=== PATIENT | female | born 1935 | race Caucasian/White ===

== ENCOUNTER 2019-08-05 14:05 | Emergency (ER) | payer MEDICARE, SELFPAY ==
--- NOTE | ~2019-08-05 | CT_ITS ---
EXAMINATION: CT abdomen pelvis wo con DATE: 08/05/2019 14:59 INDICATION: Right flank pain. TECHNIQUE: Computed tomography (CT) of the abdomen and pelvis was performed without intravenous contr ast. Automated exposure control and iterative reconstruction technique were employed. The dose-length product was 852.36 mGy-cm. COMPARISON: CT abdomen and pelvis 12/04/2018 FINDINGS: The visualized portions of the lung bases demonstrate mild atelectasis. No pleural effusion . The heart size is normal. There are coronary artery calcifications. No pericardial effusion. There is a small sliding hiatal hernia. There is diffuse hepatic steatosis. There are changes of cholecyste ctomy. The spleen, pancreas, and adrenal glands are normal. There are peripelvic cysts in the kidneys measuring up to 2.9 cm on the left. There is a 2 mm stone in right kidney. There is diverticulosis o f the colon without evidence of diverticulitis. Again seen is a diverticulum of the appendix, which i s otherwise normal. There are no pathologically enlarged lymph nodes. There is no free intraperitonea l fluid. There is severe lumbar spondylosis. There are bridging endplate osteophytes at multiple leve ls in the thoracic spine, consistent with diffuse idiopathic skeletal hyperostosis (DISH). IMPRESSION: 1. 2 mm nonobstructing right kidney stone. 2. Diffuse hepatic steatosis. 3. Small sliding hiatal hernia. Reviewed, dictated and finalized at location A.
[2019-08-05 14:11] VITALS: BP 124/98; PULSE 96; RESP 18; TEMP 36.8; O2SAT 100
--- NOTE | 2019-08-05 14:34 | ED.ABDPAIN ---
HPI - Abdominal Pain General Chief Complaint: Back Pain/Injury Stated Complaint: flank pain Time Seen by Provider: 08/05/19 14:20 Source: patient and RN notes reviewed Mode of arrival: ambulatory Limitations: no limitations History of Present Illness HPI narrative: Pt is a 84 y/o female who presents to the ED with c/o rt flank pain starting several days ago. 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 Pt notes that her pain has aggravated within the past several days, and states that her pain has begun to radiate into her rt groin. She also reports urinary frequency over the past 2 days and a cough, but denies any nausea, vomiting, numbness/tingling in her genital region, dysuria, hematuria, rhinorrhea, or sore throat. Pt states that she has been taking Tylenol for her pain, and notes that the medication seems to alleviate her symptoms for a short while. She states that she has a Hx of kidney stones, and notes that she is concerned she may have a kidney stone currently. She states that she hasn't taken her water pills this morning. MD elicited complaint: flank pain Onset (ago): day(s) (several) Location: R flank Radiation: other (rt groin) Associated symptoms: other (urinary frequency; cough) Related Data Home Medications Medication Instructions Recorded Confirmed aspirin 81 mg tablet,delayed 81 mg PO DAILY 07/19/19 release calcium carbonate 600 mg calcium 600 mg PO DAILY 07/19/19 (1,500 mg) tablet calcium polycarbophil 625 mg tablet 1,250 mg PO DAILY 07/19/19 cholecalciferol (vitamin D3) 1,250 50,000 unit PO WEEKLY 07/19/19 mcg (50,000 unit) capsule citalopram 10 mg tablet 10 mg PO DAILY 07/19/19 esomeprazole magnesium 40 mg 40 mg PO DAILY 07/19/19 capsule,delayed release glimepiride 2 mg tablet 2 mg PO QAM 07/19/19 lisinopril 10 mg tablet 10 mg PO DAILY 07/19/19 multivitamin with minerals 1 tablet PO DAILY 07/19/19 potassium gluconate 595 mg (99 mg) 595 mg PO DAILY 07/19/19 tablet Allergies Allergy/AdvReac Type Severity Reaction Status Date / Time No Known Allergies Allergy Verified 07/20/19 11:16 Review of Systems Review of Systems: All systems reviewed & are unremarkable except as noted in HPI and below ENT: Denies nasal discharge and Denies sore throat Respiratory: Respiratory: Reports cough Gastrointestinal: Gastrointestinal: Denies nausea and Denies vomiting Genitourinary: Genitourinary: Denies hematuria, Denies dysuria, Reports flank pain (rt flank pain radiating into rt groin) and Reports other (urinary frequency) Neurologic: Denies numbness (genital region) and Denies tingling (genital region) [facility] Past Medical History Medical History (Updated 08/05/19 @ 15:26 by Villa Greenberg MD) Anxiety Arthritis Cataracts, bilateral Depression Diverticulitis Essential (primary) hypertension Foot fracture Gallstones Gastric ulcer GERD (gastroesophageal reflux disease) Kidney stones Low back pain Osteoporosis Pancreatitis Skin cancer Surgical History Surgical History Hx of cataract surgery Hx of cholecystectomy Hx of dilation and curettage Social History Social History Smoking status: Never smoker Second hand tobacco smoke exposure: No Alcohol intake: never Substance use: never Gender identity (if verbalized by the patient): Female Exam Narrative: Exam Narrative: GENERAL: Well-appearing, well-nourished, and in no acute distress. HEAD: Normocephalic, atraumatic. ENT: Mucous membranes moist. CHEST: Clear to auscultation. No respiratory distress. HEART: Regular rate and rhythm. Normal peripheral pulses. ABDOMEN: Soft, nontender, nondistended, no CVA tenderness. EXTREMITIES: Normal range of motion. No edema. SKIN: Warm, dry, no rash. NEURO: Alert and
[2019-08-05 14:44] LABS: Basophils Percent Auto 0.2 % (0.2-1.2); Eosinophils Percent Auto 0.7 % (0-4.4); Hematocrit 37.8 % (37.0-47.0); Hemoglobin 12.4 g/dL (12.0-15.0); Immature Granulocyte Absolute 0.02 K/mm3 (0.00-0.031); Immature Granulocyte Percent A 0.3 % (0-0.5); Lymphocytes Absolute Auto 1.64 K/mm3 (0.9-3.2); Lymphocytes Percent Auto 28.5 % (18.3-44.2); Mean Corpuscular HGB Conc 32.8 g/dl (32-36); Mean Corpuscular Hemoglobin 29.3 pg (26-34); Mean Corpuscular Volume 89.4 fl (80-100); Mean Platelet Volume 10.1 fl (7.4-10.4); Monocytes Absolute Auto 0.6 K/mm3 (0.1-0.6); Monocytes Percent Auto 11.1 % (2.6-8.5); Neutrophils Absolute Auto 3.4 K/mm3 (1.3-6.7); Neutrophils Percent Auto 59.2 % (45.5-73.1); Platelet Count Result 174 k/mm3 (150-375); Red Blood Count 4.23 M/mm3 (4.2-5.4); Red Cell Distribution Width 13.7 % (11.5-14.5); White Blood Count 5.8 K/mm3 (4.5-10.0)
[2019-08-05 14:55] LABS: Blood Urea Nitrogen 21 mg/dL (7-17); Calcium 9.6 mg/dL (8.4-10.2); Carbon Dioxide 23 mmol/L (22-30); Chloride 108 mmol/L (98-107); Estimated CRCL calculation 60 ml/min; Estimated Glomerular Filt Rate > 60; Glucose 131 mg/dL (65-105); Potassium 3.9 mmol/L (3.4-5.0); Sodium 138 mmol/L (137-145)
[2019-08-05 15:06] LABS: Add Urine Microscopic? YES; Appearance Urine Clear (Clear); Bacteria Urine 2+ /hpf; Bilirubin Urine Negative (Negative); Blood Urine Negative (Negative); Color Urine Yellow (Yellow); Glucose Urine UA Negative (Negative); Ketones Urine Negative (Negative); Leukocyte Esterase Ur 1+ LEU/UL (Negative); Mucus Urine Rare /lpf; Nitrate Urine Negative (Negative); Protein Urine Negative (Negative); RBC Urine 0-2 /hpf (0-2); Specific Grav Ur 1.023 (1.001-1.035); Squamous Epithelial Cell Urine Few /hpf (Few); Urobilinogen Urine Negative mg/dL (<2.0); WBC Urine 21-30 /hpf
[2019-08-05 15:49] VITALS: BP 118/75; PULSE 75; RESP 16; O2SAT 100
== END 2019-08-05 15:50 | disposition home or self-care (01) ==
PROVIDERS: Emergency Provider Emergency Medicine; PCP Internal Medicine
DX: N39.0 Urinary tract infection, site not specified (principal); F41.9 Anxiety disorder, unspecified; M19.90 Unspecified osteoarthritis, unspecified site; F32.9 Major depressive disorder, single episode, unspecified; I10 Essential (primary) hypertension; K21.9 Gastro-esophageal reflux disease without esophagitis; Z87.442 Personal history of urinary calculi; M81.0 Age-related osteoporosis without current pathological fracture; Z85.828 Personal history of other malignant neoplasm of skin; Z98.42 Cataract extraction status, left eye; Z98.41 Cataract extraction status, right eye; K76.0 Fatty (change of) liver, not elsewhere classified; K44.9 Diaphragmatic hernia without obstruction or gangrene; N20.0 Calculus of kidney
CPT/HCPCS: 36415; 74176; 80048; 81001; 85025; 87077; 87086; 87088; 87186; 99284

== ENCOUNTER 2019-09-21 19:49 | Emergency (ER) | payer MEDICARE, SELFPAY ==
--- NOTE | ~2019-09-21 | XR_ITS ---
EXAMINATION: XR abdomen/kub 1V EXAM DATE: 09/21/2019 21:33 INDICATION: Right flank pain. History kidney stones. Fall. TECHNIQUE: Frontal projection(s) of the abdomen for interpretation. Comparison is made to prior exami nation from 10/04/2014. FINDINGS: Interval cholecystectomy. There is expected amount of colonic stool and gas. No small vashti wel dilation, nonobstructive bowel gas pattern. Can't identify the punctate right nephrolithiasis se en on CT. There is no organomegaly suspected. Patient has diffuse idiopathic skeletal hyperostosis (DISH). IMPRESSION: Unremarkable abdomen x-ray exam. Reviewed, dictated and finalized at location A.
--- NOTE | ~2019-09-21 | CT_ITS ---
EXAMINATION: CT abdomen pelvis wo con EXAM DATE: 09/21/2019 21:10 INDICATION: Right-sided flank pain, fall. TECHNIQUE: Spiral CT of the abdomen and pelvis was performed without contrast. Axial, coronal and s agittal images were reviewed. The dose-length product (DLP) for this examination was 1437.50 mGy-cm. The exposure was tailored according to patient size (auto mA exposure control), and iterative recon struction (ASIR) was used as additional dose reduction technique. Comparison is made to prior examina tion from 08/05/2019. FINDINGS: No solid organ injury. The liver, spleen, adrenal glands and pancreas are unremarkable. T here are cholecystectomy clips. There is 2 mm right inferior calyceal stone. Probable renal peripelv ic cysts. No hydroureter or obstructing stones The uterus is unremarkable. The bladder is unremark able. There is no retroperitoneal or pelvic lymphadenopathy. There is moderate scattered arteriosc lerotic disease. The appendix is normal. There is small sliding gastroesophageal hiatal hernia. There is sigmoid pred ominant colonic diverticulosis. There is no adjacent inflammatory change to suggest diverticulitis. Small umbilical fat-containing hernia. There is expected amount of colonic stool. No free intrape ritoneal gas. There is 5 mm pleural-based left lower lobe nodule unchanged, but decreased in size c ompared to 2019. This is a granuloma. There are no acute fractures identified. There is chronic mild to moderate compression fracture of L4. IMPRESSION: 1. No acute intra-abdominal findings. 2. Punctate nonobstructing right nephrolithiasis. 3. Colonic diverticulosis. Reviewed, dictated and finalized at location A.
--- NOTE | ~2019-09-21 | XR_ITS ---
EXAMINATION: XR shoulder RT min 2V EXAM DATE: 09/21/2019 21:34 INDICATION: No known recent injury provided at this time. Pain of the right shoulder. TECHNIQUE: The following right shoulder projections obtained: frontal projection with internal rotati on, frontal projection with external rotation, Grashey, and scapular Y view (4+ views). There is no prior study for comparison. FINDINGS: There is small acute closed posttraumatic fracture along the inferior margin of the glenoid . This finding has been indicated, marked on the examination for review, clinical correlation. The humeral head appears intact. 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 IMPRESSION: 1. Small acute right glenoid rim fracture inferiorly. 2. Moderate osteoarthritis. Reviewed, dictated and finalized at location A.
--- NOTE | ~2019-09-21 | XR_ITS ---
EXAMINATION: [id number]_[id number] EXAM DATE: 09/21/2019 21:34 INDICATION: Fall, right rib pain. TECHNIQUE: Frontal projection of the upper right ribs, frontal projection of the lower right ribs, ob lique projection of the right ribs, frontal chest x-ray(s) for interpretation. Correlation is made to chest x-ray 09/17/2016. FINDINGS: There is small acute closed posttraumatic fracture suspected along the inferior margin of t he right glenoid. Please see the right shoulder report same date. There are no displaced acute right rib fractures identified. There is no soft tissue abnormality see n. No confluent consolidation, pneumothorax or pleural effusion suspected. There is aortic arterioscl erosis. Patient has diffuse idiopathic skeletal hyperostosis (DISH). There is moderate right should er primary osteoarthritis. Consider educating patient that even if there is a radiographically occult nondisplaced rib fracture, there is no specific treatment other than to refrain from activity that prevents healing. IMPRESSION: 1. No displaced right rib fractures. 2. Probable right glenoid rim fracture. Reviewed, dictated and finalized at location A.
--- NOTE | ~2019-09-21 | CT_ITS ---
EXAMINATION: CT brain wo con, CT cervical spine wo con EXAM DATE: 09/21/2019 21:10 INDICATION: Head injury, neck pain. TECHNIQUE: Spiral CT of the head was performed without contrast. Axial, coronal and sagittal images were reviewed. Spiral CT of the cervical spine was performed without contrast. Axial images were rev iewed. Coronal and sagittal reformatted images were also reviewed. The dose-length product (DLP) fo r this examination was 605.33 (accession [id number]), 438.04 (accession [id number]) mGy-cm. The exposure was tailored according to patient size, and iterative reconstruction (ASIR) was used as additional dose reduction technique. Comparison is made to prior examination from 09/27/14. FINDINGS: HEAD CT: There is no acute intraparenchymal hemorrhage. No evidence of intraparenchymal brain mass l esion. No evidence of acute infarction. There is mild periventricular and subcortical hypodensity, n onspecific but probably related to small vessel ischemic disease. There is mild prominence of the s ulci and ventricles related to cerebral atrophy. There is intracranial carotid arteriosclerosis. There is no mass effect or midline shift. There is no obstructive hydrocephalus suspected. There are no extra-axial collections. There are no acute calvarial fractures. Patient has had bilateral ocul ar lens surgery. Soft tissue is unremarkable. The visualized sinuses and mastoid air cells are well aerated. CERVICAL CT: There is no evidence of acute cervical fracture. The odontoid process is intact. Pre-d ens space is normal. Prevertebral soft tissue is normal. There are no soft tissue abnormalities navid ntified. There is no disc space widening or traumatic vertebral body subluxation suspected. There i s moderate cervical spondylosis. A detailed level by level evaluation of spondylosis can be added as addendum if requested. IMPRESSION: 1. No acute intracranial or cervical findings. 2. Chronic age-related intracranial findings. 3. Cervical spondylosis. Reviewed, dictated and finalized at location A. IMPRESSION: 1. No acute intracranial or cervical findings. 2. Chronic age-related intracranial findings. 3. Cervical spondylosis.
[2019-09-21 19:51] VITALS: BP 162/66; PULSE 90; RESP 18; TEMP 36.3; O2SAT 99
--- NOTE | 2019-09-21 20:56 | PC.NURSE ---
pt in ct/xray
--- NOTE | 2019-09-21 20:59 | ED.FALL ---
HPI - Fall General Chief Complaint: Fall Stated Complaint: FALL Time Seen by Provider: 09/21/19 20:20 Source: patient Mode of arrival: ambulatory Limitations: no limitations History of Present Illness HPI Narrative: This patient is an 84 year old female who presents from home for an evaluation of right shoulder pain, right rib pain s/p fall. Patient states around 3 pm today she slipped on some water and she fell. She thinks she may have hit her head because she broke her glasses. She denies LOC or headache. She has pain to her right shoulder and right ribs. Her rib pain is worse with breathing. She denies nausea, vomiting or shortness of breath. She has been ambulating with out any difficulty or pain to her lower extremities. Patient also states she has history of kidney stones and she has been having intermittent right flank pain prior to her fall. She is concerned she may be having another kidney stone. complaint: fall Onset (ago): hour(s) (5) Related Data Home Medications Medication Instructions Recorded Confirmed aspirin 81 mg tablet,delayed 81 mg PO DAILY 07/19/19 release calcium carbonate 600 mg calcium 600 mg PO DAILY 07/19/19 (1,500 mg) tablet calcium polycarbophil 625 mg tablet 1,250 mg PO DAILY 07/19/19 cholecalciferol (vitamin D3) 1,250 50,000 unit PO WEEKLY 07/19/19 mcg (50,000 unit) capsule lisinopril 10 mg tablet 10 mg PO DAILY 07/19/19 multivitamin with minerals 1 tablet PO DAILY 07/19/19 potassium gluconate 595 mg (99 mg) 595 mg PO DAILY 07/19/19 tablet Allergies Allergy/AdvReac Type Severity Reaction Status Date / Time No Known Allergies Allergy Verified 09/21/19 19:54 Review of Systems Review of Systems: All systems reviewed & are unremarkable except as noted in HPI and below Constitutional: Constitutional: Denies chills and Denies fever(s) Eyes: Eyes: Reports no additional eye complaints Respiratory: Respiratory: Denies dyspnea Gastrointestinal: Gastrointestinal: Denies abdominal pain Genitourinary: Genitourinary: Reports flank pain Musculoskeletal: Musculoskeletal: Reports back pain PMFSH Past Medical History Medical History Anxiety Arthritis Cataracts, bilateral Depression Diverticulitis Essential (primary) hypertension Foot fracture Gallstones Gastric ulcer GERD (gastroesophageal reflux disease) Kidney stones Low back pain Osteoporosis Pancreatitis Skin cancer Surgical History Surgical History Hx of cataract surgery Hx of cholecystectomy Hx of dilation and curettage Social History Social History Smoking status: Never smoker Second hand tobacco smoke exposure: No Alcohol intake: never Substance use: never Gender identity (if verbalized by the patient): Female Exam Narrative: Exam Narrative: GENERAL: Well-appearing, well-nourished, and in no acute distress. HEAD: Normocephalic, atraumatic EYES: PERRLA and EOMI, conjunctiva clear without discharge , abrasion to right temporal EARS: TM's clear bilaterally without erythema or dullness NOSE: Nares clear, no rhinorrhea or epistaxis THROAT:Mucous membranes moist, Oropharynx normal without erythema, exudate, peritonsillar swelling or fluctuance NECK: Supple, without lymphadenopathy or mass, there is posterior neck tenderness RESPIRATORY: No respiratory distress, Airway patent, Respirations non-labored, Clear to auscultation without rales, rhonchi or wheeze, right anterior rib tenderness HEART: Regular rate and rhythm. No murmur heard. Normal peripheral pulses. ABDOMEN: Soft, nontender, nondistended, normal active bowel sounds. No masses. No rebound or guarding, No organomegaly. EXTREMITIES: No edema, normal strength with full range of motion. right shoulder with pain with palpation, possible mild swelling to shoulder SKIN:
--- NOTE | 2019-09-21 21:19 | PC.NURSE ---
pt still in ct/xray
[2019-09-21 21:48] LABS: Basophils Percent Auto 0.1 % (0.2-1.2); Eosinophils Percent Auto 0.4 % (0-4.4); Hematocrit 38.9 % (37.0-47.0); Hemoglobin 12.4 g/dL (12.0-15.0); Immature Granulocyte Absolute 0.02 K/mm3 (0.00-0.031); Immature Granulocyte Percent A 0.2 % (0-0.5); Lymphocytes Absolute Auto 1.79 K/mm3 (0.9-3.2); Lymphocytes Percent Auto 21.9 % (18.3-44.2); Mean Corpuscular HGB Conc 31.9 g/dl (32-36); Mean Corpuscular Volume 90.9 fl (80-100); Mean Platelet Volume 10.5 fl (7.4-10.4); Monocytes Absolute Auto 0.7 K/mm3 (0.1-0.6); Monocytes Percent Auto 8.7 % (2.6-8.5); Neutrophils Absolute Auto 5.6 K/mm3 (1.3-6.7); Neutrophils Percent Auto 68.7 % (45.5-73.1); Platelet Count Result 170 k/mm3 (150-375); Red Blood Count 4.28 M/mm3 (4.2-5.4); White Blood Count 8.2 K/mm3 (4.5-10.0)
[2019-09-21 22:02] LABS: Alanine Aminotransferase 30 U/L (4-35); Albumin Level 4.4 g/dL (3.5-5.1); Alkaline Phosphatase 98 U/L (38-126); Aspartate Amino Transferase 35 U/L (14-36); Bilirubin,Total 0.4 mg/dL (0.2-1.3); Blood Urea Nitrogen 17 mg/dL (7-17); Calcium 9.4 mg/dL (8.4-10.2); Carbon Dioxide 28 mmol/L (22-30); Chloride 103 mmol/L (98-107); Estimated CRCL calculation 67 ml/min; Estimated Glomerular Filt Rate > 60; Glucose 136 mg/dL (65-105); Sodium 136 mmol/L (137-145)
[2019-09-21 22:11] VITALS: BP 152/88; PULSE 88; RESP 16; O2SAT 99
[2019-09-21 22:11] LABS: Add Urine Microscopic? YES; Appearance Urine Clear (Clear); Bacteria Urine Trace /hpf; Bilirubin Urine Negative (Negative); Blood Urine Negative (Negative); Color Urine Yellow (Yellow); Glucose Urine UA Negative (Negative); Ketones Urine Negative (Negative); Leukocyte Esterase Ur Trace LEU/UL (Negative); Mucus Urine Rare /lpf; Nitrate Urine Negative (Negative); Protein Urine Negative (Negative); RBC Urine 0-2 /hpf (0-2); Specific Grav Ur 1.019 (1.001-1.035); Squamous Epithelial Cell Urine Rare /hpf (Few); Urobilinogen Urine Negative mg/dL (<2.0)
[2019-09-21 23:25] VITALS: BP 159/89; PULSE 75; RESP 16; O2SAT 99
[2019-09-21 23:43] VITALS: BP 161/74; PULSE 78; RESP 18; O2SAT 100
== END 2019-09-21 23:44 | disposition home or self-care (01) ==
PROVIDERS: Emergency Provider General Practice; PCP Internal Medicine
DX: M19.90 Unspecified osteoarthritis, unspecified site (principal); I10 Essential (primary) hypertension; K21.9 Gastro-esophageal reflux disease without esophagitis; M81.0 Age-related osteoporosis without current pathological fracture; Z85.828 Personal history of other malignant neoplasm of skin; Z87.442 Personal history of urinary calculi; Z98.42 Cataract extraction status, left eye; Z98.41 Cataract extraction status, right eye; Z79.82 Long term (current) use of aspirin
CPT/HCPCS: 36415; 70450; 71101; 72125; 73030; 74018; 74176; 80053; 81001; 85025; 96374; 99284; J0131

== ENCOUNTER 2019-10-07 07:42 | Outpatient (CLI) | payer MEDICARE, SELFPAY ==
--- NOTE | ~2019-10-07 | MR_ITS ---
EXAMINATION: MR shoulder RT wo con DATE: 10/07/2019 08:55 INDICATION: Right shoulder pain. TECHNIQUE: Magnetic resonance imaging (MRI) of the right shoulder was performed without intravenous c ontrast. Sequences included axial PD-weighted FS FSE, coronal oblique PD-weighted FS FSE and T2-weigh david FS FSE, and sagittal oblique T2-weighted FS FSE and T1-weighted FSE. COMPARISON: Right shoulder radiographs 09/21/2019 FINDINGS: Coracoacromial arch: The acromion undersurface is flat in morphology (type I). There is severe acromial clavicular joint o steoarthritis including a fairly directed osteophytes. There is severe subacromial/subdeltoid bursiti s. Rotator cuff: There is severe supraspinatus tendinopathy and moderate infraspinatus tendinopathy. There is a full-t hickness tear of supraspinatus tendon measuring 14 mm anterior to posterior by 18 mm proximal to dist al. Teres minor tendon is normal. There is severe subscapularis tendinopathy with partial tear superi gustavo. There is mild fatty atrophy of supraspinatus muscle belly. Biceps tendon and glenoid labrum: Biceps tendon is in bicipital groove. There is moderate intra-articular biceps tendinopathy. There is widespread tearing of the glenoid labrum. Fluid: There is a moderate-sized glenohumeral joint effusion with synovitis. Bones/cartilage: There is deep partial thickness cartilage loss of humeral head superiorly and medially. There is an i mpaction fracture deformity of superior posterolateral aspect of humeral head with bone marrow edema (Hill-Sachs fracture deformity). There is a displaced fracture of the anteroinferior glenoid with bon e marrow edema (Bankart fracture). There is deep partial thickness cartilage loss of the central and inferior glenoid. IMPRESSION: 1. Subacute Hill-Sachs fracture and Bankart fracture. 2. Severe rotator cuff tendinopathy with full-thickness tear of supraspinatus tendon and partial thic kness tear of subscapularis tendon. 3. Moderate intra-articular biceps tendinopathy. 4. Severe acromioclavicular joint osteoarthritis. 5. Moderate-sized glenohumeral joint effusion and severe subacromial/subdeltoid bursitis. Reviewed, dictated and finalized at location A. IMPRESSION: 1. Subacute Hill-Sachs fracture and Bankart fracture. 2. Severe rotator cuff tendinopathy with full-thickness tear of supraspinatus t endon and partial thickness tear of subscapularis tendon. 3. Moderate intra-articular biceps tendinopathy. 4. Severe acromioclavicular joint osteoarthritis. 5. Moderate-sized glenohumeral joint effusion and severe subacromial/subdeltoid bursitis.
== END 2019-10-07 07:43 | disposition home or self-care (01) ==
PROVIDERS: PCP Internal Medicine; Visit Provider Orthopaedic Surgery
DX: S42.144A Nondisplaced fracture of glenoid cavity of scapula, right shoulder, initial encounter for closed fracture (principal); X58.XXXA Exposure to other specified factors, initial encounter; M19.011 Primary osteoarthritis, right shoulder; M75.51 Bursitis of right shoulder
CPT/HCPCS: 73221

== ENCOUNTER 2019-12-06 17:46 | Emergency (ER) | payer MEDICARE, SELFPAY ==
--- NOTE | ~2019-12-06 | XR_ITS ---
[XR_[id number] ] INDICATION: Right chest pain after fall TECHNIQUE: Frontal projection of the upper right ribs, frontal projection of the lower right ribs, ob lique projection of all the right ribs, frontal inspiratory chest x-ray for interpretation. FINDINGS: There is a right seventh rib fracture. There is a possible right eighth rib fracture. There are no soft tissue abnormality seen. The lungs are clear. There are cholecystectomy clips. IMPRESSION: 1: Right seventh and possibly eighth rib fractures. Reviewed, dictated and finalized at location A.
[2019-12-06 18:20] VITALS: BP 140/67; PULSE 86; RESP 16; TEMP 36.1; O2SAT 96
--- NOTE | 2019-12-06 20:33 | ED.FALL ---
HPI - Fall General Chief Complaint: Fall Stated Complaint: fall, rib pain Time Seen by Provider: 12/06/19 20:21 History of Present Illness HPI Narrative: Fell and struck her chest earlier today. She has pain in the ribs in the right chest. The pain is constatn with paroxysms. No SOB, cough. She did not strike her head or sustain any other injury. Related Data Home Medications Medication Instructions Recorded Confirmed aspirin 81 mg tablet,delayed 81 mg PO DAILY 07/19/19 release calcium carbonate 600 mg calcium 600 mg PO DAILY 07/19/19 (1,500 mg) tablet calcium polycarbophil 625 mg tablet 1,250 mg PO DAILY 07/19/19 cholecalciferol (vitamin D3) 1,250 50,000 unit PO WEEKLY 07/19/19 mcg (50,000 unit) capsule multivitamin with minerals 1 tablet PO DAILY 07/19/19 potassium gluconate 595 mg (99 mg) 595 mg PO DAILY 07/19/19 tablet Allergies Allergy/AdvReac Type Severity Reaction Status Date / Time No Known Allergies Allergy Verified 09/21/19 19:54 Review of Systems Review of Systems: All systems reviewed & are unremarkable except as noted in HPI and below PMFSH Past Medical History Medical History Anxiety Arthritis Cataracts, bilateral Depression Diverticulitis Essential (primary) hypertension Foot fracture Gallstones Gastric ulcer GERD (gastroesophageal reflux disease) Kidney stones Low back pain Osteoporosis Pancreatitis Skin cancer Surgical History Surgical History Hx of cataract surgery Hx of cholecystectomy Hx of dilation and curettage Family History Family History Father Patient's father is No family history of cerebrovascular accident (CVA) Mother Patient's mother is Other Cerebrovascular accident Diabetes mellitus Family history of heart disease in male family member before age 55 Hypertension Social History Social History Smoking status: Never smoker Second hand tobacco smoke exposure: No Alcohol intake: never Substance use: never Gender identity (if verbalized by the patient): Female Exam Const: General: healthy appearing, no acute distress and alert Orientation/consciousness: patient oriented x3 HENMT: Head: normal to inspection Chest: Chest palpation & inspection: tenderness rib (right anterior) Resp: Effort & Inspection: normal respiratory effort Auscultation: clear to auscultation bilaterally Cardio: Rate: regular rate Rhythm: regular rhythm Skin: General skin exam: normal color Neuro: General: patient oriented x3 and moves all extremities Speech: normal speech Course Vital Signs Vital signs: Vital Signs Temperature 36.1 C L 12/06/19 18:20 Pulse Rate 86 12/06/19 18:20 Respiratory Rate 16 12/06/19 18:20 Blood Pressure 140/67 12/06/19 18:20 Pulse Oximetry 96 12/06/19 18:20 Temperature 36.1 C L 12/06/19 18:20 Pulse Rate 80 12/06/19 22:58 Respiratory Rate 16 12/06/19 22:58 Blood Pressure 127/74 12/06/19 22:58 Pulse Oximetry 95 12/06/19 22:58 MDM - Fall Medical Records Attestation: I reviewed the patient's medical records. Discharge Plan Discharge Clinical Impression: Fracture of rib Patient Disposition: Home, Self-Care Condition: Stable Instructions: Rib Fracture (ED) Prescriptions: New hydrocodone-acetaminophen [[place]] 5-325 mg tablet 1 tablet PO Q4H PRN (Reason: pain) Qty: 15 RF: 0 No Action aspirin [Adult Low Dose Aspirin] 81 mg tablet,delayed release (DR/EC) 81 mg PO DAILY RF: 0 calcium carbonate [Calcium 600] 600 mg calcium (1,500 mg) tablet 600 mg PO DAILY RF: 0 cholecalciferol (vitamin D3) 1,250 mcg (50,000 unit) capsule 50,000 unit PO WEEKLY RF: 0 calcium polycarbophil [Fiber Therapy
--- NOTE | 2019-12-06 20:36 | PC.NURSE ---
Pt staes she slipped off the porch due to the rain and fell on her right side falling ontop of a lamdscapping rock. Pt states when she breathes it hurts the right side of her back. Pt denies ever hitting her head. Pt is sitting holding both sides of her upper abd stating, only under her right breast has pain.
[2019-12-06] MEDS: KETOROLAC (*BKC) 60 MG/2 ML VIAL IM (20:46)
[2019-12-06 20:48] VITALS: BP 133/62; PULSE 88; RESP 20; O2SAT 95
[2019-12-06 22:58] VITALS: BP 127/74; PULSE 80; RESP 16; O2SAT 95
== END 2019-12-06 22:40 | disposition home or self-care (01) ==
PROVIDERS: Emergency Provider Emergency Medicine; PCP Internal Medicine
DX: S22.31XA Fracture of one rib, right side, initial encounter for closed fracture (principal); M19.90 Unspecified osteoarthritis, unspecified site; I10 Essential (primary) hypertension; K21.9 Gastro-esophageal reflux disease without esophagitis; Z87.442 Personal history of urinary calculi; M81.0 Age-related osteoporosis without current pathological fracture; Z85.828 Personal history of other malignant neoplasm of skin; Z98.42 Cataract extraction status, left eye; Z98.41 Cataract extraction status, right eye; W01.10XA Fall on same level from slipping, tripping and stumbling with subsequent striking against unspecified object, initial encounter
CPT/HCPCS: 71101; 96372; 99284; A9270; J1885; J3360

== ENCOUNTER 2020-02-22 00:15 | Outpatient (CLI) | payer MEDICARE, SELFPAY ==
[2020-02-22 19:01] LABS: SARS-CoV-2 RNA PCR Negative
== END 2020-02-22 00:16 | disposition home or self-care (01) ==
LOC: ANHCOVIDDT 00:15
PROVIDERS: PCP Internal Medicine; Visit Provider Internal Medicine Gastroenterology
DX: Z01.812 Encounter for preprocedural laboratory examination (principal); Z20.828 Contact with and (suspected) exposure to other viral communicable diseases
CPT/HCPCS: 87635; C9803; U0003

== ENCOUNTER 2020-02-24 00:03 | Day surgery (SDC) | payer MEDICARE, SELFPAY ==
[2020-02-17 10:08] VITALS: BMI 38.4
[2020-02-24] MEDS: LACTATED RINGERS 1,000 ML 150 ML IV CONT (08:30)
[2020-02-24 08:31] LABS: Glucose Point of Care 168 (65-105)
[2020-02-24 08:34] VITALS: BP 175/78; PULSE 95; RESP 20; TEMP 36.6; O2SAT 95; BMI 40.1
--- NOTE | 2020-02-24 08:37 | PM.IMHP ---
H&P: HPI History of Present Illness Date/Time: 02/24/20 08:37 Chief complaint: GERD Narrative: Reason for visit EGD. This very pleasant lady was seen in consultation at the request of the primary physician. Impression: We have a very pleasant lady with history of GERD. She is well controlled on medication. She also has a history of adenomatous duodenal polyp. She is here for screening and surveillance. HTN. Obesity. DM. Anxiety/depression. Gallstone pancreatitis. Osteoporosis. Diverticulosis coli. Chronic low back pain. Skin cancer. Kidney stones. Recommendation: EGD. Patient has a colonoscopy scheduled. History: This very pleasant lady has a GI history of gallstone pancreatitis, GERD and adenomatous duodenal polyps. She is here for screening and surveillance of duodenal polyps. Her GERD is well controlled on medication. Physical examination: General: very pleasant patient in no acute distress. HEENT: Head was normocephalic sclerae is clear mouth without masses neck was supple. Heart: Rate rhythm regular without S3 or S4. Lungs: CTA. Abdomen: Soft with no guarding or rigidity. Bowel sounds were active. Neurologic: Cranial nerves 2 through 12 intact. No focal defects. No clonus. Musculoskeletal system: Revealed no joint tenderness or swelling no muscle atrophy. Extremities: Reveal no significant edema. Skin: Warm and dry with normal turgor. Mental status: intact. Patient is alert and oriented. Review of Systems Review of Systems: All systems reviewed & are unremarkable except as noted in HPI and below PMFSH Past Medical History Medical History (Updated 01/25/20 @ 13:02 by Won Manzo DO) Anxiety Arthritis Cataracts, bilateral Depression Diverticulitis Essential (primary) hypertension Foot fracture Gallstones Gastric ulcer GERD (gastroesophageal reflux disease) Kidney stones Low back pain Osteoporosis Pancreatitis Skin cancer Surgical History Surgical History Hx of cataract surgery Hx of cholecystectomy Hx of dilation and curettage Family History Family History Father Patient's father is No family history of cerebrovascular accident (CVA) Mother Patient's mother is Other Cerebrovascular accident Diabetes mellitus Family history of heart disease in male family member before age 55 Hypertension Social History Social History Smoking status: Never smoker Second hand tobacco smoke exposure: No Alcohol intake: never Substance use: never Substance use type: does not use Living arrangements: alone Gender identity (if verbalized by the patient): Female Sexual Orientation (if Verbalized by the Patient): Straight or Heterosexual Spiritual care concerns: No Meds Home Medications and Allergies Home Medications Medication Instructions Recorded Confirmed Type aspirin 81 mg tablet,delayed 81 mg PO DAILY 07/19/19 02/17/20 History release calcium carbonate 600 mg calcium 600 mg PO DAILY 07/19/19 02/17/20 History (1,500 mg) tablet calcium polycarbophil 625 mg tablet 1,250 mg PO DAILY 07/19/19 02/17/20 History multivitamin with minerals 1 tablet PO DAILY 07/19/19 02/17/20 History potassium gluconate 595 mg (99 mg) 595 mg PO DAILY 07/19/19 02/17/20 History tablet hydrochlorothiazide 25 mg tablet 25 mg PO 2XW PRN #30 tablet 07/20/19 02/17/20 Rx citalopram 10 mg tablet 10 mg PO DAILY #90 tablet 09/16/19 02/17/20 Rx esomeprazole magnesium 40 mg 40 mg PO DAILY #90 cap 09/16/19 02/17/20 Rx capsule,delayed release tolnaftate 1 % topical powder 1 applic TOPICAL BID #45 gm 10/05/19 02/17/20 Rx diltiazem HCl 180 mg capsule,24 180 mg PO DAILY #90 cap 10/23/19 02/17/20 Rx hr,extended release lisinopril 10 mg tabl
--- NOTE | 2020-02-24 08:48 | WPDANESEPPF ---
Anes - Initial Pre Proc Eval Procedure: Operation Date: 02/24/20 09:00 Proposed Procedures p Esophagogastroduodenoscopy - Stone Payan DO Date/Time: 02/24/20 08:48 Surgeon: Stone Payan DO Pre Op Diagnosis: GERD Patient Data Age: 84 Gender: F Height: 5 ft 6 in Weight: 112.7 kg Last Vital Signs Temp 36.6 C 02/24/20 08:34 Pulse 95 02/24/20 08:34 Resp 20 02/24/20 08:34 BP 175/78 H 02/24/20 08:34 Pulse Ox 95 02/24/20 08:34 Allergies Allergy/AdvReac Type Severity Reaction Status Date / Time No Known Allergies Allergy Verified 02/24/20 08:15 Home Medications Medication Instructions Recorded Confirmed Type aspirin 81 mg tablet,delayed 81 mg PO DAILY 07/19/19 02/17/20 History release calcium carbonate 600 mg calcium 600 mg PO DAILY 07/19/19 02/17/20 History (1,500 mg) tablet calcium polycarbophil 625 mg tablet 1,250 mg PO DAILY 07/19/19 02/17/20 History multivitamin with minerals 1 tablet PO DAILY 07/19/19 02/17/20 History potassium gluconate 595 mg (99 mg) 595 mg PO DAILY 07/19/19 02/17/20 History tablet hydrochlorothiazide 25 mg tablet 25 mg PO 2XW PRN #30 tablet 07/20/19 02/17/20 Rx citalopram 10 mg tablet 10 mg PO DAILY #90 tablet 09/16/19 02/17/20 Rx esomeprazole magnesium 40 mg 40 mg PO DAILY #90 cap 09/16/19 02/17/20 Rx capsule,delayed release tolnaftate 1 % topical powder 1 applic TOPICAL BID #45 gm 10/05/19 02/17/20 Rx diltiazem HCl 180 mg capsule,24 180 mg PO DAILY #90 cap 10/23/19 02/17/20 Rx hr,extended release lisinopril 10 mg tablet 10 mg PO DAILY #90 tablet 12/02/19 02/17/20 Rx cholecalciferol (vitamin D3) 1,250 50,000 unit PO WEEKLY #13 cap 01/25/20 02/17/20 Rx mcg (50,000 unit) capsule glimepiride 4 mg tablet 4 mg PO DAILY #90 tablet 01/25/20 02/17/20 Rx Laboratory Tests 02/24/20 08:28 POC Capillary Glucose 168 mg/dl H mg/dl (65-105) Patient hx anesthesia problems: none Family hx anesthesia problems: none PMFSH Past Medical History Medical History Anxiety Arthritis Cataracts, bilateral Depression Diverticulitis Essential (primary) hypertension Foot fracture Gallstones Gastric ulcer GERD (gastroesophageal reflux disease) Kidney stones Low back pain Osteoporosis Pancreatitis Skin cancer Surgical History Surgical History Hx of cataract surgery Hx of cholecystectomy Hx of dilation and curettage Family History Family History Father Patient's father is No family history of cerebrovascular accident (CVA) Mother Patient's mother is Other Cerebrovascular accident Diabetes mellitus Family history of heart disease in male family member before age 55 Hypertension Social History Social History Smoking status: Never smoker Second hand tobacco smoke exposure: No Alcohol intake: never Substance use: never Substance use type: does not use Living arrangements: alone Gender identity (if verbalized by the patient): Female Sexual Orientation (if Verbalized by the Patient): Straight or Heterosexual Spiritual care concerns: No Anes - Eval Final PreProcedure Day of Procedure 02/24/20 08:48 Patient weight: morbidly obese Heart: regular rate and rhythm Lungs: clear to auscultation Airway: Mallampati scale class II Neurological: alert and oriented Last oral intake: >/= 8 hours ASA classification: III Emergent: no Anesthetic plan: proceed Anesthesia type and monitoring: general GIVS and standard monitoring Informed Consent: The patient's anesthetic plan and its attendant risks and benefits were discussed with the patient/family/POA. Questions were solicited and answers provided to the satisfaction of the patient/family/POA.
[2020-02-24 09:49] VITALS: BP 150/77; PULSE 76; RESP 12; O2SAT 97
[2020-02-24 09:59] VITALS: BP 164/82; PULSE 77; RESP 12; O2SAT 99
[2020-02-24 10:09] VITALS: BP 172/86; PULSE 80; RESP 21; O2SAT 98
== END 2020-02-24 10:30 | disposition home or self-care (01) ==
PROVIDERS: PCP Internal Medicine; Visit Provider Internal Medicine Gastroenterology
PROC: 0DJ08ZZ Inspection of Upper Intestinal Tract, Via Natural or Artificial Opening Endoscopic (ICD-10-PCS; CPT 43235; principal; 2020-02-24 09:00)
DX: K21.9 Gastro-esophageal reflux disease without esophagitis (principal); K57.10 Diverticulosis of small intestine without perforation or abscess without bleeding; K29.70 Gastritis, unspecified, without bleeding; I10 Essential (primary) hypertension; F41.8 Other specified anxiety disorders; M81.0 Age-related osteoporosis without current pathological fracture; Z79.82 Long term (current) use of aspirin; Z87.11 Personal history of peptic ulcer disease; E66.01 Morbid (severe) obesity due to excess calories; Z68.41 Body mass index [BMI] 40.0-44.9, adult
CPT/HCPCS: 43239; 87081; 88305; 88342; J2704; J7120

== ENCOUNTER 2020-03-07 01:08 | Outpatient (CLI) | payer MEDICARE, SELFPAY ==
[2020-03-07 19:05] LABS: SARS-CoV-2 RNA PCR Negative
== END 2020-03-07 01:09 | disposition home or self-care (01) ==
LOC: ANHCOVIDDT 01:08
PROVIDERS: PCP Internal Medicine; Visit Provider Internal Medicine Gastroenterology
DX: Z01.812 Encounter for preprocedural laboratory examination (principal); Z20.828 Contact with and (suspected) exposure to other viral communicable diseases
CPT/HCPCS: 87635; C9803; U0003

== ENCOUNTER 2020-03-09 00:33 | Day surgery (SDC) | payer MEDICARE, SELFPAY ==
[2020-03-02 09:26] VITALS: BMI 38.7
--- NOTE | 2020-03-08 08:56 | WPDANESEPPF ---
Anes - Initial Pre Proc Eval Procedure: Operation Date: 03/09/20 07:30 Proposed Procedures p Colonoscopy - Stone Payan DO Date/Time: 03/08/20 08:56 Surgeon: Stone Payan DO Pre Op Diagnosis: polyp of colon Patient Data Age: 84 Gender: F Height: 1.68 m Weight: 109 kg Allergies Allergy/AdvReac Type Severity Reaction Status Date / Time No Known Allergies Allergy Verified 03/09/20 06:28 Home Medications Medication Instructions Recorded Confirmed Type aspirin 81 mg tablet,delayed 81 mg PO DAILY 07/19/19 03/02/20 History release calcium carbonate 600 mg calcium 600 mg PO DAILY 07/19/19 03/02/20 History (1,500 mg) tablet calcium polycarbophil 625 mg tablet 1,250 mg PO DAILY 07/19/19 03/02/20 History multivitamin with minerals 1 tablet PO DAILY 07/19/19 03/02/20 History potassium gluconate 595 mg (99 mg) 595 mg PO DAILY 07/19/19 03/02/20 History tablet hydrochlorothiazide 25 mg tablet 25 mg PO 2XW PRN #30 tablet 07/20/19 03/02/20 Rx citalopram 10 mg tablet 10 mg PO DAILY #90 tablet 09/16/19 03/02/20 Rx esomeprazole magnesium 40 mg 40 mg PO DAILY #90 cap 09/16/19 03/02/20 Rx capsule,delayed release tolnaftate 1 % topical powder 1 applic TOPICAL BID #45 gm 10/05/19 03/02/20 Rx diltiazem HCl 180 mg capsule,24 180 mg PO DAILY #90 cap 10/23/19 03/02/20 Rx hr,extended release lisinopril 10 mg tablet 10 mg PO DAILY #90 tablet 12/02/19 03/02/20 Rx cholecalciferol (vitamin D3) 1,250 50,000 unit PO WEEKLY #13 cap 01/25/20 03/02/20 Rx mcg (50,000 unit) capsule glimepiride 4 mg tablet 4 mg PO DAILY #90 tablet 01/25/20 03/02/20 Rx Patient hx anesthesia problems: none Family hx anesthesia problems: none PMFSH Past Medical History Medical History Anxiety Arthritis Cataracts, bilateral Depression Diverticulitis Essential (primary) hypertension Foot fracture Gallstones Gastric ulcer GERD (gastroesophageal reflux disease) Kidney stones Low back pain Osteoporosis Pancreatitis Skin cancer Surgical History Surgical History Hx of cataract surgery Hx of cholecystectomy Hx of dilation and curettage Family History Family History Father Patient's father is No family history of cerebrovascular accident (CVA) Mother Patient's mother is Other Cerebrovascular accident Diabetes mellitus Family history of heart disease in male family member before age 55 Hypertension Social History Social History Smoking status: Never smoker Second hand tobacco smoke exposure: No Alcohol intake: never Substance use: never Substance use type: does not use Living arrangements: alone Gender identity (if verbalized by the patient): Female Sexual Orientation (if Verbalized by the Patient): Straight or Heterosexual Spiritual care concerns: No Anes - Eval Final PreProcedure Day of Procedure 03/08/20 08:56 Patient weight: obese Heart: regular rate and rhythm Lungs: clear to auscultation and normal air movement Airway: Mallampati scale class III Neurological: alert and oriented Last oral intake: >/= 8 hours ASA classification: III Emergent: no Anesthetic plan: proceed Anesthesia type and monitoring: general GIVS and standard monitoring Informed Consent: The patient's anesthetic plan and its attendant risks and benefits were discussed with the patient/family/POA. Questions were solicited and answers provided to the satisfaction of the patient/family/POA.
[2020-03-09 06:31] VITALS: BP 121/58; PULSE 96; RESP 18; TEMP 36.6; O2SAT 96
[2020-03-09 06:33] VITALS: BMI 38.9
[2020-03-09 06:49] LABS: Glucose Point of Care 201 (65-105)
[2020-03-09] MEDS: LACTATED RINGERS 1,000 ML 150 ML IV CONT (06:51)
--- NOTE | 2020-03-09 07:33 | WPDHPUPDATE1 ---
History and Physical Update Update Date/Time: 03/09/20 07:33 History and Physical has been reviewed, including an updated exam of the patient. There are NO changes in the patient's condition. Risks, benefits, and alternatives have been discussed and questions answered. Patient agrees to proceed with procedure.
[2020-03-09 08:04] VITALS: BP 105/58; PULSE 72; RESP 15; O2SAT 95
[2020-03-09 08:14] VITALS: BP 128/61; PULSE 72; RESP 16; O2SAT 94
[2020-03-09 08:24] VITALS: BP 134/70; PULSE 76; RESP 15; O2SAT 99
== END 2020-03-09 08:45 | disposition home or self-care (01) ==
PROVIDERS: PCP Internal Medicine; Visit Provider Internal Medicine Gastroenterology
PROC: 0DJD8ZZ Inspection of Lower Intestinal Tract, Via Natural or Artificial Opening Endoscopic (ICD-10-PCS; CPT 45378; principal; 2020-03-09 07:30)
DX: Z12.11 Encounter for screening for malignant neoplasm of colon (principal); D12.2 Benign neoplasm of ascending colon; K57.30 Diverticulosis of large intestine without perforation or abscess without bleeding; K64.8 Other hemorrhoids; E11.9 Type 2 diabetes mellitus without complications; M81.0 Age-related osteoporosis without current pathological fracture; I10 Essential (primary) hypertension; F41.8 Other specified anxiety disorders; H26.9 Unspecified cataract; K21.9 Gastro-esophageal reflux disease without esophagitis; Z87.11 Personal history of peptic ulcer disease; Z79.84 Long term (current) use of oral hypoglycemic drugs; E66.9 Obesity, unspecified; Z68.39 Body mass index [BMI] 39.0-39.9, adult
CPT/HCPCS: 45385; 45380; 88305; J2704; J7120

== ENCOUNTER 2021-08-27 16:54 | Observation (INO) | payer MEDICARE, SELFPAY ==
--- NOTE | ~2021-08-27 | MR_ITS ---
EXAMINATION: MR brain/brain stem wo/w con EXAM DATE: 08/28/2021 07:51 INDICATION: Stroke like symptoms, dysarthria. TECHNIQUE: Magnetic resonance imaging (MRI) of the brain/brain stem obtained without contrast. Sagit sonal T1, axial diffusion, gradient echo (T2*), T1, T2, FLAIR sequences obtained. Patient was then inj ected with 20 cc intravenous Multihance contrast. Axial and coronal postcontrast T1 weighted sequence s obtained. Correlation is made to head CT from 08/27/2021. FINDINGS: Small acute infarction in the left centrum semiovale, left frontal lobe white matter. Ther e is no acute hemorrhage seen on the T2*, a hemosiderin sensitive sequence. No intraparenchymal brai n mass lesion. There is mild to moderate periventricular and subcortical T2/FLAIR signal hyperintensi ty, nonspecific but probably related to small vessel ischemic disease (microangiopathy). There are no extra-axial collections. Flow voids are seen in the cerebral arteries on the T2-weighted sequence s consistent with their expected patency. Patient has had bilateral ocular lens surgery. Soft tissu e is unremarkable. There are no areas of abnormal enhancement on the postcontrast images. IMPRESSION: 1. Small acute left centrum semiovale infarction. 2. Chronic age related findings. Reviewed, dictated and finalized at location A.
--- NOTE | ~2021-08-27 | CT_ITS ---
EXAMINATION: CTA BRAIN/CAROTID DATE: 08/28/2021 16:56 INDICATION: Acute stroke with slurred speech and left facial droop TECHNIQUE: Computed tomographic angiography (CTA) of the head and neck was performed with 100 mL Omni paque-350 intravenous contrast. Multiplanar reconstructions and maximum intensity projection 3D-recon structions of the carotid arteries and of the intracranial arteries were created by the technologist on a separate workstation. Precontrast CT of the head was also obtained. Automated exposure control and iterative reconstruction technique were employed.The dose-length product was 1763.80 mGy-cm. COMPARISON: Brain MR dated 08/28/[address] dated 08/26/2021 FINDINGS: Carotid arteries: Atherosclerotic plaque with 0% stenosis of both the left and right carotid bulbs relative to normal d istal artery lumen diameter (NASCET criteria). Small amount of atherosclerotic plaque at the origin o f the left and right common carotid arteries as well as at the origin of the dominant left vertebral artery. The right vertebral artery is diminutive carotid course. Atherosclerotic coronary artery calc ifications. Mosaic attenuation in the visualized upper lungs likely related to expiratory phase of im aging and atelectasis with subsegmental regions of air trapping. A few mildly prominent but still nor mal-sized likely reactive mediastinal lymph nodes. Extensive benign subcentimeter right thyroid nodul e. Mild cervical spondylosis. Chronic T5 compression fracture with 20% anterior vertebral body height loss. Head: No acute intracranial hemorrhage or abnormal extra axial fluid collection. The small acute infarct in the posterior left frontal lobe centrum semiovale evident on prior brain MR is essentially indiscern ible on the CT images. There is mild scattered white matter hypoattenuation consistent with chronic s mall vessel ischemic disease. Ventricles are normal and symmetric. No mass/mass effect. Changes of b ilateral intraocular lens replacement. The orbits and mastoid air cells are normal. Mild mucoperioste al thickening in the bilateral ethmoid and maxillary sinuses. Intracranial arteries There is decreased AP diameter of the carotid canal in the right temporal bone resulting in extrinsic compression of the petrous portion of the right internal carotid artery. There is atherosclerotic pl aque without hemodynamically significant stenosis at the lateral carotid siphons. There is mild scatt ered stenosis, basilar and left vertebral arteries. The right vertebral artery is diminutive. There i s no hemodynamically significant stenosis in the vertebral, basilar and internal carotid arteries. Th ere are no aneurysms or dissection identified. The right A1 and P1 segments are patent. The left ante rior cerebral artery is supplied via the right A1 segment and a patent anterior communicating artery. The left posterior cerebral artery supplied from the left internal carotid artery via a left posteri or commuting artery. Cerebral arterial arborization appears symmetric. IMPRESSION: 1. 0% stenosis of the left and right carotid bulbs relative to normal distal artery lumen diameter (N ASCET criteria). 2. Scattered mild atherosclerotic disease in slightly intracranial cerebral arteries without hemodyna mically significant stenosis of aneurysm or dissection. Reviewed, dictated and finalized at location A. IMPRESSION: 1. 0% stenosis of the left and right carotid bulbs relative to normal distal ar sylvester lumen diameter (NASCET criteria). 2. Scattered mild atherosclerotic disease in slightly intracranial cerebral art eries without hemodynamically significant stenosis of aneurysm or dissection.
--- NOTE | ~2021-08-27 | US_ITS ---
EXAMINATION: US carotid duplex BI EXAM DATE: 08/28/2021 08:32 INDICATION: Dysarthria. Acute left centrum semiovale infarction. TECHNIQUE: Grayscale, color and pulsed Doppler images of the cervical carotid arteries were obtained . The degree of vessel stenosis is placed in one of the following categories: normal, <50% stenosis, 50-69% stenosis, >=70% stenosis but less than near-occlusion, near-occlusion, or occlusion. Note that percent stenosis relative to normal distal artery lumen diameter is indirectly measured from velocit y measurements as described by Marc, et al. Radiology 2003; 229:340-346. There is no prior study fo r comparison. FINDINGS: RIGHT SIDE: Right common carotid artery peak systolic velocity (PSV in cm/s): 106 Right bulb/internal carotid artery peak systolic velocity (PSV in cm/s): 133 Right internal carotid artery end diastolic velocity (EDV in cm/s): 16 Right ICA/CCA peak systolic ratio: 1.3 Right external carotid artery peak systolic velocity (PSV in cm/s): 142 Right vertebral artery antegrade flow: yes There is mild carotid bulb plaque. Velocity and Doppler waveforms in the common and internal carotid arteries is normal. LEFT SIDE: Left common carotid artery peak systolic velocity (PSV in cm/s): 95 Left bulb/internal carotid artery peak systolic velocity (PSV in cm/s): 77 Left internal carotid artery end diastolic velocity (EDV in cm/s): 25 Left ICA/CCA peak systolic ratio: 0.8 Left external carotid artery peak systolic velocity (PSV in cm/s): 108 Left vertebral artery antegrade flow: yes There is mild carotid bulb plaque. Velocity and Doppler waveforms in the common and internal carotid arteries is normal. IMPRESSION: 1. Less than 50 percent stenosis in the right internal carotid artery. 2. Less than 50 percent stenosis in the left internal carotid artery. > Reviewed, dictated and finalized at location A.
--- NOTE | ~2021-08-27 | XR_ITS ---
EXAMINATION: XR chest 1V Exam Date/Time: 08/27/2021 17:45 CDT CLINICAL HISTORY: slurred speech, minor facial droop, HX OF HTN Comparison: 09/17/2016.. RESULT: Lines, tubes, and devices: None. Lungs and pleura: Clear. Cardiomediastinal silhouette: Stable cardiomediastinal silhouette. Other: No acute osseous or upper abdominal finding. IMPRESSION: No acute cardiopulmonary process Reviewed, dictated and finalized at location K.
--- NOTE | ~2021-08-27 | CT_ITS ---
EXAMINATION: CT brain wo con DATE: 08/27/2021 17:51 INDICATION: slurred speech, minor facial droop, vision changes TECHNIQUE: Computed tomography (CT) of the head was performed without intravenous contrast. The mA wa s adjusted according to patient size. Iterative reconstruction technique was employed. The dose-lengt h product was 605.33 mGy-cm. COMPARISON: 09/21/2019. FINDINGS: No acute intracranial hemorrhage or extra-axial fluid collection. No hydrocephalus, mass, or herniation. No acute ischemic infarct. Unremarkable dural venous sinus attenuation. No acute osseous abnormality. The aerated spaces are clear. Mild atrophy and chronic white matter change. Intracranial atherosclerotic calcification. Bilateral l ens replacements. IMPRESSION: No acute intracranial process. Reviewed, dictated and finalized at location K.
[2021-08-27 17:07] VITALS: BP 157/87; BP 179/91; PULSE 65; PULSE 78; RESP 16; RESP 19; TEMP 36.6; O2SAT 95; O2SAT 96
[2021-08-27 17:10] LABS: Glucose Point of Care 121 mg/dl (65-105)
--- NOTE | 2021-08-27 17:29 | ECG_ITS ---
Measurements Intervals [place] Rate: 59 P: 24 NE: 155 QRS: -2 QRSD: 90 T: 35 QT: 437 QTc: 435 Interpretive Statements SINUS BRADYCARDIA WITH OCCASIONAL SUPRAVENTRICULAR PREMATURE COMPLEXES Electronically Signed On 08-28-2021 11:07:51 CDT by Juan Antonio Herndon M.D.
[2021-08-27 17:31] VITALS: BP 183/99; PULSE 61; RESP 18; O2SAT 97
[2021-08-27 17:38] LABS: Basophils Percent Auto 0.3 % (0.2-1.2); Eosinophils Absolute Auto 0.1 K/mm3 (0-0.3); Eosinophils Percent Auto 1.3 % (0-4.4); Hematocrit 38.2 % (37.0-47.0); Hemoglobin 12.2 g/dL (12.0-15.0); Immature Granulocyte Absolute 0.03 K/mm3 (0.00-0.031); Immature Granulocyte Percent A 0.5 % (0-0.5); Lymphocytes Absolute Auto 2.12 K/mm3 (0.9-3.2); Lymphocytes Percent Auto 33.3 % (18.3-44.2); Mean Corpuscular HGB Conc 31.9 g/dl (32-36); Mean Corpuscular Hemoglobin 29.7 pg (26-34); Mean Corpuscular Volume 92.9 fl (80-100); Mean Platelet Volume 10.5 fl (7.4-10.4); Monocytes Absolute Auto 0.7 K/mm3 (0.1-0.6); Monocytes Percent Auto 11.1 % (2.6-8.5); Neutrophils Absolute Auto 3.4 K/mm3 (1.3-6.7); Neutrophils Percent Auto 53.5 % (45.5-73.1); Platelet Count Result 186 k/mm3 (150-375); Red Blood Count 4.11 M/mm3 (4.2-5.4); White Blood Count 6.4 K/mm3 (4.5-10.0)
[2021-08-27 17:49] LABS: Prothrombin Time 13.1 Seconds (11.1-14.7)
[2021-08-27 17:50] LABS: Partial Thromboplastin Time 26.7 SECONDS (22.3-36.8)
[2021-08-27 18:16] LABS: Alanine Aminotransferase 19 U/L (4-35); Albumin Level 4.1 g/dL (3.5-5.1); Alkaline Phosphatase 86 U/L (38-126); Anion Gap 6 mmol/L (8-16); Aspartate Amino Transferase 25 U/L (14-36); Bilirubin,Total 0.2 mg/dL (0.2-1.3); Blood Urea Nitrogen 27 mg/dL (7-17); Calcium 9.3 mg/dL (8.4-10.2); Carbon Dioxide 29 mmol/L (22-30); Chloride 104 mmol/L (98-107); Estimated CRCL calculation 60 ml/min; Estimated Glomerular Filt Rate > 60; Glucose 110 mg/dL (65-110); Potassium 4.4 mmol/L (3.4-5.0); Sodium 139 mmol/L (137-145)
[2021-08-27 18:28] LABS: Troponin I < 0.012 ng/mL (0.000-0.034)
[2021-08-27 18:48] VITALS: BP 167/70; PULSE 73; RESP 16; O2SAT 96
--- NOTE | 2021-08-27 19:15 | PC.NURSE ---
Assumed care of pt at this time. Pt upright on stretcher, updated on POC.
--- NOTE | 2021-08-27 19:37 | ED.NEUROSD ---
HPI - Neuro Symptoms/Deficit General Chief Complaint: Suspected CVA Stated Complaint: slurred speech Time Seen by Provider: 08/27/21 17:15 History of Present Illness HPI Narrative: Patient is an 86-year-old female who presents ER with concerns for strokelike symptoms. Last known normal was yesterday at 6 PM. Patient's daughter spoke to her this morning around 9 AM and noticed speech was slurred. They urged her to seek care and she did not. Symptoms have persisted throughout the day. Patient does have slurred speech. No weakness in arm or leg. No dizziness or confusion. No difficulty ambulating. No history of previous CVA. Does not take a blood thinner. Denies history of irregular heartbeat. Related Data Home Medications Medication Instructions Recorded Confirmed aspirin 81 mg tablet,delayed 81 mg PO DAILY 07/19/19 04/18/21 release calcium carbonate 600 mg calcium 600 mg PO DAILY 07/19/19 04/18/21 (1,500 mg) tablet calcium polycarbophil 625 mg tablet 1,250 mg PO DAILY 07/19/19 04/18/21 multivitamin with minerals 1 tablet PO DAILY 07/19/19 04/18/21 potassium gluconate 595 mg (99 mg) 595 mg PO DAILY 07/19/19 04/18/21 tablet biotin 10,000 mcg capsule mcg PO 02/14/21 04/18/21 Allergies Allergy/AdvReac Type Severity Reaction Status Date / Time No Known Allergies Allergy Verified 08/27/21 17:32 Review of Systems Review of Systems: All systems reviewed & are unremarkable except as noted in HPI and below Constitutional: Constitutional: Denies chills, Denies fever(s) and Denies headache(s) Eyes: Eyes: Denies blurry vision and Reports diplopia (chronic) Cardiovascular: Cardiovascular: Denies chest pain, Denies radiating jaw, neck or arm pain and Denies palpitations Respiratory: Respiratory: Denies cough and Denies dyspnea Gastrointestinal: Gastrointestinal: Denies abdominal pain, Denies diarrhea, Denies nausea and Denies vomiting Neurologic: Denies Neuro-related abnormal movements, Reports Abnormal speech present, Denies dizziness, Denies syncope, Denies headache(s), Denies numbness and Denies Other visual disturbances PMFSH Past Medical History Medical History (Updated 08/27/21 @ 21:44 by Villa Greenberg MD) Anxiety Arthritis Cataracts, bilateral Depression Diabetes Diverticulitis 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 Essential (primary) hypertension Foot fracture Gallstones Gastric ulcer GERD (gastroesophageal reflux disease) History of vaginal delivery Hypertension Kidney stones Low back pain Osteoporosis Pancreatitis Skin cancer Vitamin D deficiency, unspecified Surgical History Surgical History (Updated 08/21/21 @ 15:05 by Vivian Veras MA) History of colonoscopy 06/27/21 History of squamous cell carcinoma excision Hx of cataract surgery Hx of cholecystectomy Hx of dilation and curettage Family History Family History Father Patient's father is No family history of cerebrovascular accident (CVA) Mother Patient's mother is Other Cerebrovascular accident Diabetes mellitus Family history of heart disease in male family member before age 55 Hypertension Social History Social History Smoking status: Never smoker Second hand tobacco smoke exposure: No Alcohol intake: never Substance use: never Substance use type: does not use Gender identity (if verbalized by the patient): Female Sexual Orientation (if Verbalized by the Patient): Straight or Heterosexual Spiritual care concerns: No Exam Narrative: GENERAL: Well-appearing, well-nourished, and in no acute distress. HEAD: Normocephalic, atraumatic. EYES: PERRL and EOMI. ENT: Mucous membranes moist. CHEST: Clear to auscultation. No respiratory distress. HEART: Regular rate and rhythm. Normal peripheral pulses. ABDOMEN: Soft, nontender, nondistended. E
[2021-08-27 20:13] VITALS: BP 166/77; PULSE 65; RESP 16; O2SAT 97
[2021-08-27] MEDS: ASPIRIN 81 MG CHEWABLE TABLET 324 MG PO (20:19)
--- NOTE | 2021-08-27 20:19 | PC.NURSE ---
Pt states she took 2 81mg ASA just [employer] to ED.
[2021-08-27 20:56] VITALS: PULSE 76; RESP 16; O2SAT 96
--- NOTE | 2021-08-27 21:16 | ADMGEN ---
This patient, Jeannette Lilly, was admitted to Medical Room 250-01. Patient/family oriented to hospital policies and general routines including ID bracelet, bed and alarms, visiting hours, pain management, procedures, bathroom and other care routines, personal items, smoking policy, room service/diet, and visiting hours. Information on how to activate the Rapid Response Team has been discussed. Patient/Family are encouraged to report perceived risks to care and to ask questions if they do not understand what they are told or what they should do.
[2021-08-27 21:38] VITALS: BP 156/63; PULSE 75; RESP 16; TEMP 36.6; O2SAT 96
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
[2021-08-28] VITALS (11 sets, daily range): BP systolic 97–156; BP diastolic 56–82; PULSE 62–92; RESP 14–17; TEMP 36–36.8; O2SAT 92–97; BMI 40.8
--- NOTE | 2021-08-28 | ECHO_ITS ---
Patient Info Name: Jeannette Lilly Age: 86 years : 1935 Gender: Female Ht: 65 in Wt: 253 lbs BSA: 2.35 m2 HR: 71 bpm Heart Rhythm: Sinus Rhythm Exam Date: 08/28/2021 3:46 PM Exam Location: [facility] Patient Status: Inpatient Admit Date: 08/27/2021 Staff Ordering Physician: Kacey Loving PA-C Ell Teacher: [place] Attending Provider: Kacey Loving PA-C Exam Type: CA echo limited w bubble study Study Info Indications - CVA Limited two-dimensional transthoracic echocardiogram is performed with agitated saline. Summary 1. Limited study with limited views. 2. Left ventricular systolic function is normal, estimated at 55-60%. 3. No evidence for slvig-sp-[id number] interatrial shunt with or without Valsalva. Left Ventricle Limited study with limited views. Left ventricular systolic function is normal, estimated at 55-60%. Right Ventricle Right ventricular chamber dimension is normal. Right ventricular systolic function is normal. Atrial Septum No evidence for [id number]-[id number] interatrial shunt with or without Valsalva. Report Signatures
--- NOTE | 2021-08-28 | ECHO_ITS ---
Patient Info Name: Jeannette Lilly Age: 86 years : 1935 Gender: Female Ht: 66 in Wt: 265 lbs BSA: 2.43 m2 HR: 65 bpm BP: 156 / 68 mmHg Technical Quality: Good Exam Date: 08/28/2021 10:54 AM Exam Location: [facility] Patient Status: Outpatient Admit Date: 08/27/2021 Staff Ordering Physician: Tia Wynn DO Fleet Maintenance Manager: Lionel Sheets RDCS, RT Attending Provider: Kacey Loving PA-C Referring Physician: Kingsley GAYLE; Exam Type: CA echo doppler color flow Study Info Indications G45.9 - Transient cerebral ischemic attack, unspecified Complete two-dimensional, color flow and Doppler transthoracic echocardiogram is performed. Strain analysis performed. Summary 1. Complete two-dimensional, color flow and Doppler transthoracic echocardiogram is performed. 2. Left ventricular chamber dimension is normal. 3. Left ventricular systolic function is normal, estimated at 60-65%. 4. There is moderately increased left ventricular wall thickness. 5. The left ventricular diastolic function is grade I diastolic dysfunction. 6. E/e' 16 is elevated. 7. Global longitudinal strain is abnormal at -12.2%. 8. Left atrial chamber dimension is mildly enlarged. 9. There is mild aortic valve sclerosis. 10. There is mild aortic valve regurgitation. 11. The mitral valve has moderately calcified annulus. 12. No pulmonary hypertension, estimated pulmonary arterial systolic pressure is 36 mmHg. Left Ventricle E/e' 16 is elevated. Global longitudinal strain is abnormal at -12.2%. Left ventricular chamber dimension is normal. Left ventricular systolic function is normal, estimated at 60-65%. There is moderately increased left ventricular wall thickness. The left ventricular diastolic function is grade I diastolic dysfunction. Right Ventricle Right ventricular systolic function is normal and with normal TAPSE 2.1 cm. Right ventricular chamber dimension is normal. Left Atria Left atrial chamber dimension is mildly enlarged. Right Atria Right atrial chamber dimension is normal. Aortic Valve The aortic valve is trileaflet. There is mild aortic valve sclerosis. There is no aortic valve stenosis. There is mild aortic valve regurgitation. Pulmonic Valve There is no pulmonic regurgitation. Mitral Valve The mitral valve has moderately calcified annulus. There is no mitral valve stenosis. There is no mitral valve regurgitation. Tricuspid Valve There is no tricuspid valve regurgitation. No pulmonary hypertension, estimated pulmonary arterial systolic pressure is 36 mmHg. Pericardium/Pleural There is no pericardial effusion. Inferior Vena Cava Normal inferior vena cava with >50% collapse upon inspiration consistent with normal right atrial pressure, 5 mmHg. Aorta The aortic root size at the sinus of Valsalva is normal. Left Ventricular Outflow Tract Name Value Normal LVOT 2D LVOT Diameter 2.0 cm LVOT Doppler LVOT Peak Gradient 4 mmHg LVOT Mean Gradient 2 mmHg LVOT VTI 24 cm LVOT VT
[2021-08-28 08:58] LABS: Glucose Point of Care 158 mg/dl (65-105)
[2021-08-28] MEDS: POTASSIUM CHLORIDE 10 MEQ TABLET.ER PO (09:01)
[2021-08-28] MEDS: lisinopriL 10 MG TABLET PO (09:02)
[2021-08-28] MEDS: calcium polycarbophiL 625 MG TABLET 1250 MG PO (09:02)
[2021-08-28] MEDS: PANTOPRAZOLE 40 MG TABLET PO (09:02)
[2021-08-28] MEDS: ASPIRIN 325 MG ENTERIC TABLET PO (09:02)
[2021-08-28] MEDS: hydroCHLOROthiazide 25 MG TABLET PO (09:03)
[2021-08-28] MEDS: CITALOPRAM HYDROBROMIDE 10 MG TABLET PO (09:03)
[2021-08-28] MEDS: dilTIAZem HCL CD 180 MG CAP.ER.24H PO (09:03)
--- NOTE | 2021-08-28 11:27 | PCSTNOTE ---
Speech Therapy evaluation completed; patient will be provided with one follow-up session for homework instruction but may continue if she remains in the hospital.
[2021-08-28 11:40] LABS: Glucose Point of Care 171 mg/dl (65-105)
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
--- NOTE | 2021-08-28 13:28 | PM.IMPN ---
Progress Note: A&P Assessment and Plan (1) CVA (cerebral vascular accident): Code(s): I63.9 - Cerebral infarction, unspecified Status: Acute Assessment and Plan: Presented with facial droop and slurred speech, both resolved and patient feels back to baseline Head CT on presentation showed no acute intracranial process MRI with small acute left centrum semiovale infarction Carotid Doppler with <50% stenosis of the bilateral internal carotid arteries Will obtain head/neck CTA Echocardiogram reviewed with normal EF 60-65%, grade 1 diastolic dysfunction, no significant valvular disease. Will proceed with bubble study Check A1c and lipid panel Continue to monitor on telemetry. Review of telemetry demonstrates episodes of atrial fibrillation. Discussed with patient and daughter, will proceed with cardiology consult. Aspirin 81 mg daily. Plavix for 6 weeks Atorvastatin 40 mg daily PT/OT/ST evals appreciated (2) Hypertension: Qualifiers: Hypertension type: unspecified Qualified Code(s): I10 - Essential (primary) hypertension Code(s): I10 - Essential (primary) hypertension Status: Acute Assessment and Plan: Blood pressure reviewed and is slightly elevated above target in the 150s systolic Allow for permissive hypertension in setting of acute CVA Monitor blood pressure trends (3) Type 2 diabetes mellitus: Qualifiers: Diabetes mellitus complication status: without complication Diabetes mellitus longterm insulin use: without oysterman use Qualified Code(s): E11.9 - Type 2 diabetes mellitus without complications Code(s): E11.9 - Type 2 diabetes mellitus without complications Status: Acute Assessment and Plan: Patient's daughter reports she is not compliant with monitoring glucose Continue Accu-Cheks, sliding scale insulin, hypoglycemic protocol Check updated A1c Monitor glucose trends Subjective Date/time seen: 08/28/21 13:28 Interval history: Date of service: 08/28/2021 Jeannette Lilly is 86-year-old female with a history of anxiety, depression, hypertension, GERD, and type 2 diabetes mellitus affecting the follow-up for acute CVA. The patient states at this time she is feeling in her usual state of health. She feels her speech is back to normal, though her daughter still feels that she is mumbling. Her daughter states that she has noticed her speech being slurred for several months but the patient has declined to be evaluated for this. The patient denies facial drooping. She does endorse double vision which she states is chronic for her. She is not having any flashes, floaters, fractured vision. She denies weakness, dizziness, lightheadedness. She is ambulating without difficulty. She is eating well. She denies dysphagia or odynophagia. Review of Systems Review of Systems: All systems reviewed & are unremarkable except as noted in HPI and below Exam Narrative: General: Well-nourished, well-appearing 86-year-old female, sitting up in bed, comfortable, NARD Neuro: awake, alert and oriented x4, speech clear, CN II-XII intact, face symmetric, strength 5/5 throughout, sensation intact, no pronator drift, bilateral labor delivery rn strength equal, able to perform rapid alternating movements, able to perform finger to nose HEENMT: normocephalic, atraumatic, EOMI, sclerae anicteric, moist oral mucosa Respiratory: clear to auscultation bilaterally, nonlabored breathing Cardio: regular rate, regular rhythm with S1-S2 Abdomen: nondistended, normoactive bowel sounds, soft, nontender to palpation Extremities: bilateral lower extremities with trace edema, no erythema, or tenderness to palpation, DP pulses 2+ bilaterally Skin: no rashes or lesions, warm and dry Psych: appropriate mood and affect, judgment and insight intact Objective Data Vital Signs Vital Signs: Vital Signs - 24 hr 08/27/21 17:07 08/27/21 17:31 08/27/21 18:48 Temperature 9
[2021-08-28 16:21] LABS: Glucose Point of Care 158 mg/dl (65-105)
[2021-08-28] MEDS: CLOPIDOGREL BISULFATE 300 MG TABLET PO (16:56)
[2021-08-28 20:43] LABS: Glucose Point of Care 171 mg/dl (65-105)
[2021-08-29] VITALS: PULSE 75
[2021-08-29 04:00] VITALS: BP 140/67; PULSE 77; PULSE 80; RESP 17; TEMP 36.3; O2SAT 95
[2021-08-29 04:54] LABS: Hematocrit 34.7 % (37.0-47.0); Hemoglobin 11.1 g/dL (12.0-15.0); Mean Corpuscular Hemoglobin 29.7 pg (26-34); Mean Corpuscular Volume 92.8 fl (80-100); Mean Platelet Volume 10.1 fl (7.4-10.4); Platelet Count Result 153 k/mm3 (150-375); Red Blood Count 3.74 M/mm3 (4.2-5.4); Red Cell Distribution Width 14.1 % (11.5-14.5); White Blood Count 4.9 K/mm3 (4.5-10.0)
[2021-08-29 05:02] LABS: Anion Gap 6 mmol/L (8-16); Blood Urea Nitrogen 18 mg/dL (7-17); Calcium 8.7 mg/dL (8.4-10.2); Carbon Dioxide 28 mmol/L (22-30); Chloride 102 mmol/L (98-107); Cholesterol 196 mg/dL (0-200); Estimated CRCL calculation 59 ml/min; Estimated Glomerular Filt Rate > 60; Glucose 145 mg/dL (65-110); HDL Direct 44 mg/dL; Hemoglobin A1C 7.2 % (<5.7); Potassium 3.8 mmol/L (3.4-5.0); Sodium 136 mmol/L (137-145); Triglycerides 103 mg/dL (<150)
[2021-08-29 05:12] LABS: LDL Cholesterol Direct 97 mg/dL
[2021-08-29 07:32] LABS: Glucose Point of Care 150 mg/dl (65-105)
[2021-08-29 08:03] VITALS: PULSE 83
[2021-08-29] MEDS: hydroCHLOROthiazide 25 MG TABLET PO (08:18)
[2021-08-29] MEDS: lisinopriL 10 MG TABLET PO (08:19)
[2021-08-29] MEDS: calcium polycarbophiL 625 MG TABLET 1250 MG PO (08:19)
[2021-08-29] MEDS: POTASSIUM CHLORIDE 10 MEQ TABLET.ER PO (08:19)
[2021-08-29] MEDS: PANTOPRAZOLE 40 MG TABLET PO (08:19)
[2021-08-29] MEDS: dilTIAZem HCL CD 180 MG CAP.ER.24H PO (08:19)
[2021-08-29] MEDS: CITALOPRAM HYDROBROMIDE 10 MG TABLET PO (08:19)
[2021-08-29 08:25] VITALS: RESP 18; O2SAT 96
--- NOTE | 2021-08-29 09:52 | PM.CNCAR ---
Assessment and Plan Additional Plan 86-year-old lady who presented with an ischemic stroke a couple of days ago. The rhythm that we see on telemetry appears to be sinus with APCs. There is 1 rhythm strip on the chart where the P waves are difficult to discern but I do not think I would diagnosis lady with atrial fibrillation at this time. For that reason I do not believe I would recommend systemic anticoagulation anti-platelet therapy as has been initiated with aspirin and clopidogrel is appropriate at this time. Please call me if you have further questions regarding this matter. Antwon Mabry MD [facility] History of Present Illness History of Present Illness Consult date/time: 08/29/21 09:52 Consult reason: atrial fibrillation Reason For Visit: stroke like symptoms, dysarthria Narrative: this is an 86-year-old woman that I am seeing at the request of the hospitalist this morning because of concern regarding atrial fibrillation in a lady that came in couple of days ago with a CVA. This patient has no previous history of cardiac pathology according to the record and according to her memory. She came into the hospital with dysarthric symptoms and slurring of her speech couple of days ago. The symptoms began about 24 hours before coming into the hospital and so she was not a candidate for emergency lytic therapy. CT scan did not show any evidence of intracranial hemorrhage. She is been managed with anti-platelet treatment and she is improving her speech seems to be getting better the last couple of days. She seems to be speaking without any difficulty as I take her history. She denies any symptoms of chest pain shortness of breath palpitations or syncope. Since she has been on the hospital she has been on telemetry and her initial 12 lead ECG demonstrates sinus rhythm with frequent premature atrial contractions. There are series of rhythm strips on the chart that demonstrated all of this there was 1 rhythm strip the yesterday which appears to show irregular rhythm with P waves are difficult to discern on all of the rest of the rhythm strips clearly shows sinus activity with APCs. Echocardiogram performed demonstrates normal left ventricular systolic function and modest aortic valve regurgitation. Review of Systems Constitutional: Constitutional: Reports no additional constitutional complaints Eyes: Eyes: Reports no additional eye complaints ENT: Reports system reviewed and no additional complaints, except as documented Cardiovascular: Cardiovascular: Reports no additional cardiovascular complaints Respiratory: Respiratory: Reports no additional respiratory complaints Gastrointestinal: Gastrointestinal: Reports no additional gastrointestinal complaints Musculoskeletal: Musculoskeletal: Reports no additional musculoskeletal complaints Integumentary/Breasts: Skin/Breast: Reports system reviewed and no additional complaints, except as docu Neurologic: Reports Abnormal speech present Endocrine: Endocrine: Reports no additional endocrine complaints Hematologic/Lymphatic: Hematologic/Lymphatic: Reports no additional hematologic/lymphatic complaints Allergic/Immunologic: Allergic/Immunologic: Reports no additional allergic/immunologic complaints [facility] Past Medical History Medical History Anxiety Arthritis Depression Diverticulitis 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 Mild concentric left ventricular hypertrophy. Mild left ventricular enlargement. Grade 1 diastolic dysfunction. EF 60 65%. Moderate left atrial enlargement. Mild aortic valve regurgitation. Mild tricuspid regurgitation. Mild pulmonic regurgitation. 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
[2021-08-29] MEDS: ATORVASTATIN 40 MG TABLET PO (09:59)
[2021-08-29] MEDS: CLOPIDOGREL BISULFATE 75 MG TABLET PO (09:59)
[2021-08-29] MEDS: ASPIRIN 81 MG ENTERIC TABLET PO (09:59)
[2021-08-29 10:25] VITALS: BP 138/81; PULSE 74; RESP 16; TEMP 36.7; O2SAT 96
[2021-08-29 11:47] LABS: Glucose Point of Care 178 mg/dl (65-105)
[2021-08-29 12:01] VITALS: PULSE 88
--- NOTE | 2021-08-29 12:21 | WPDNEUROPN ---
Progress Note: A&P Additional Plan continue the treatment as such along with the strict diet restriction Time Spent With Patient Time with patient: less than 15 minutes Subjective Date/time seen: 08/29/21 12:21 86 years old lady admitted to the hospital through the emergency room for the complaint of slurred speech in addition to ongoing history of 1. Hypertension 2. Diabetes mellitus 3. GERD 4. Depression evaluation up until now has documented her to have acute left centrum semiovale infarction in addition to chronic age-related changes but negative carotid Doppler study patient is to be instructed for the ongoing diabetic treatment particular the diet as per her daughter's request Review of Systems Review of Systems: All systems reviewed & are unremarkable except as noted in HPI and below Exam Narrative: her repeat examination is essentially unchanged Objective Data Vital Signs Vital Signs: Vital Signs - 24 hr 08/28/21 16:00 08/28/21 16:03 08/28/21 20:00 Temperature 36.5 C 36.5 C Pulse Rate 81 62 72 Respiratory Rate 17 17 Blood Pressure 97/74 L 133/78 Pulse Oximetry 95 96 08/28/21 23:27 08/29/21 00:00 08/29/21 04:00 Temperature 36.0 C L 36.3 C L Pulse Rate 92 75 77 Respiratory Rate 17 17 Blood Pressure 149/56 H 140/67 Pulse Oximetry 94 95 08/29/21 08:03 08/29/21 08:25 08/29/21 10:25 Temperature 36.7 C Pulse Rate 83 74 Respiratory Rate 18 16 Blood Pressure 138/81 Pulse Oximetry 96 96 08/29/21 12:01 Temperature Pulse Rate 88 Respiratory Rate Blood Pressure Pulse Oximetry Intake/Output Intake/Output: Intake & Output 08/26/21 08/27/21 08/28/21 08/29/21 23:59 23:59 23:59 23:59 Intake Total 1330 0 Output Total 600 Balance 730 0 Meds/Results Medications: Active Medications Generic Name Dose Route Start Last Admin Trade Name Freq PRN Reason Stop Dose Admin Acetaminophen 650 mg 08/27/21 20:17 Acetaminophen 325 Mg Tablet PO Q4H PRN Mild Pain (1-3) or Fever Hydrocodone Bitart/Acetaminophen 1 tab 08/27/21 20:17 Hydrocodone/Acetaminophen (*Crx) 5-325 Mg Tablet PO Q4H PRN Pain Rated 4-6 Aspirin 81 mg 08/29/21 09:00 08/29/21 09:59 Aspirin 81 Mg Enteric Tablet PO 81 mg QAM LEXI Administration Atorvastatin Calcium 40 mg 08/29/21 09:00 08/29/21 09:59 Atorvastatin 40 Mg Tablet PO 40 mg DAILY LEXI Administration Calcium Polycarbophil 1,250 mg 08/28/21 09:00 08/29/21 08:19 Calcium Polycarbophil 625 Mg Tablet PO 1,250 mg DAILY LEXI Administration Citalopram Hydrobromide 10 mg 08/28/21 09:00 08/29/21 08:19 Citalopram Hydrobromide 10 Mg Tablet PO 10 mg DAILY LEXI Administration Clopidogrel Bisulfate 75 mg 08/29/21 09:00 08/29/21 09:59 Clopidogrel Bisulfate 75 Mg Tablet PO 75 mg QAM LEXI Administration Dextrose 12.5 gm 08/27/21 22:05 Dextrose 50% 25 Gm/50 Ml Syringe IV PUSH PRN PRN Hypoglycemia Protocol Diltiazem HCl 180 mg 08/28/21 09:00 08/29/21 08:19 Diltiazem Hcl Cd 180 Mg Cap.Er.24h PO 180 mg DAILY LEXI Administration Glucagon 1 mg 08/27/21 22:05 Glucagon For Inj 1 Mg Vial IM PRN PRN Hypoglycemia Protocol Glucose 15 gm 08/27/21 22:05 Glucose Oral Gel 15 Gm Of Glucse In 37.5 Gm Tube PO PRN PRN Hypoglycemia Protocol Hydrochlorothiazide 25 mg 08/28/21 09:00 08/29/21 08:18 Hydrochlorothiazide 25 Mg Tablet PO 25 mg DAILY LEXI Administration Dextrose 1,000 mls @ 100 mls/hr 08/27/21 22:05 Dextrose 5% 1,000 Ml IVPB PRN PRN Hypoglycemia Protocol Insulin Aspart 2 - 5 units 08/28/21 08:00 08/29/21 12:00 Insulin Aspart (*Bkc) 100 Units/Ml SUB-Q Not Given TIDWM [facility] Protocol Lisinopril 10 mg 08/28/21 09:00 08/29/21 08:19 Lisinopril 10 Mg Tablet PO 10 mg DAILY LEXI Administration Morphine Sulfate 4 mg 08/27/21 20:17 Morphine Sulfate (*Crx) 4 Mg/Ml Inj
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
== END 2021-08-29 13:35 | disposition home or self-care (01) ==
LOC: ANHED 18:01 → ANH2MED 20:34
PROVIDERS: Physician Assistant; Admitting Provider Internal Medicine; Emergency Provider Emergency Medicine; PCP Internal Medicine; Visit Provider Nurse Practitioner Family
DX: I63.89 Other cerebral infarction (principal); R47.1 Dysarthria and anarthria; K21.9 Gastro-esophageal reflux disease without esophagitis; I10 Essential (primary) hypertension; E11.9 Type 2 diabetes mellitus without complications; F32.A Depression, unspecified; Z79.82 Long term (current) use of aspirin
CPT/HCPCS: 36415; 70450; 70496; 70498; 70553; 71045; 80048; 80053; 80061; 82948; 83036; 84484; 85025; 85027; 85610; 85730; 92507; 92523; 93005; 93306; 93308; 93880; 96375; 97161; 97165; 99285; A9270; A9577; G0378; Q9967

== ENCOUNTER 2021-11-23 13:31 | Outpatient (CLI) | payer MEDICARE, SELFPAY ==
--- NOTE | ~2021-11-23 | MM_ITS ---
EXAMINATION: MM screening [facility] [place] HISTORY: Screening mammogram TECHNIQUE: Craniocaudal and mediolateral oblique 3-D tomosynthesis images were obtained and synthetic 2-D images were generated. CAD analysis was submitted and interpreted. COMPARISON: 05/19/2018, 04/21/2017 BREAST PARENCHYMAL COMPOSITION: There are scattered areas of fibroglandular density. FINDINGS: Scattered benign-appearing calcifications are present. There is no suspicious mass, calcifi cation, or architectural distortion to suggest malignancy in either breast. There has been no suspici ous interval change. IMPRESSION: 1. No mammographic evidence of malignancy. 2. Recommend routine screening mammography while the patient remains in good health. BI-RADS Category 2: Benign finding(s). Reviewed, dictated and finalized at location A. IMPRESSION: 1. No mammographic evidence of malignancy. 2. Recommend routine screening mammography while the patient remains in good he alth. BI-RADS Category 2: Benign finding(s).
--- NOTE | ~2021-11-23 | DEXA_ITS ---
Bone Density Report Name: AVILA HOPSON Age: 86 Sex: Female Ethnicity: White Date of : 1935 Indication:postmenopausal; screening for osteoporosis; height loss; Referring Provider: BRIDGET ESPINOZA Study: Bone densitometry was performed. Exam Date: November 23, 2021 Accession number: [id number] Bone Density: Region BMD T-score Z-score Classification AP Spine(L2, L3, L4) 1.224 1.3 4.3 Normal Femoral Neck (Left) 0.797 -0.5 2.0 Normal Total Hip (Left) 0.904 -0.3 2.0 Normal Femoral Neck (Right) 0.738 -1.0 1.5 Normal Total Hip (Right) 0.843 -0.8 1.5 Normal Total Hip Mean 0.873 -0.6 1.8 Normal World Health Organization criteria for BMD impression classify patients as: Normal (T-score at or above -1.0), Osteopenia (T-score between -1.0 and -2.5), or Osteoporosis (T-score at or below -2.5). 10-year Fracture Risk: FRAX not reported because: All T-scores for Spine Total, Hip Total, Femoral Neck at or above -1.0 Treated for osteoporosis Clinical Information Provided by Patient: Is being treated for osteoporosis Has used the following medications: Fosamax (i.e. alendronate), Vitamin D, Calcium Patient maximum height was 68 Menopause Age: 52 No regular weight bearing exercise Does not regularly consume dairy products Onset of menses at age 15 Number of children 1 Impression: UNAPPROVED The patient has normal bone mass. Discussion: UNAPPROVED It is important to ask patients whether they are taking their medications and to encourage continued and appropriate compliance with their osteoporosis therapies to reduce fracture risk. It is also important to review their risk factors and encourage appropriate calcium and vitamin D intakes, exercise, fall prevention and other lifestyle measures. Follow-Up: UNAPPROVED Consider a repeat BMD and Vertebral Fracture Assessment (VFA) exam in 2 years or sooner if medically necessary, to reassess this patient's status. Reported by: JENNY on 11/23/2021 1:59:00 PM. Reviewed, dictated and finalized at location AAnjum ADAMS
== END 2021-11-23 13:32 | disposition home or self-care (01) ==
LOC: ANHIMG 13:33
PROVIDERS: PCP Internal Medicine; Visit Provider Student in an Organized Health Care Education/Training Program
DX: Z12.31 Encounter for screening mammogram for malignant neoplasm of breast (principal); Z78.0 Asymptomatic menopausal state
CPT/HCPCS: 77063; 77067; 77080

== ENCOUNTER 2022-05-08 16:36 | Observation (INO) | payer MEDICARE, SELFPAY ==
--- NOTE | ~2022-05-08 | CT_ITS ---
CT ANGIOGRAM NECK AND HEAD History: TIA, speech deficits. Technique: Serial spiral axial images through the head and neck were obtained during arterial phase I V injection of 100 cc of Omnipaque 350. 3-D postprocessing and MIP images were then reconstructed on the remote workstation. Dose reduction technique was used on this scan by utilizing automated exposur e control and iterative reconstruction technique. The dose-length product (DLP) was 1089.91 mGy-cm. COMPARISON: Prior CTA dated 08/28/2021, noncontrast CT performed earlier 05/08/2022 CTA neck findings: Bilateral vertebral arteries are patent, without significant stenosis. Bilateral common carotid, internal carotid, and external carotid arteries are patent. Despite scatter ed calcified plaques at the proximal internal carotid artery regions, there is no stenosis evident. T he proximal right internal carotid artery demonstrates 0% stenosis relative to the normal distal donavon ry lumen diameter. The proximal left internal carotid artery demonstrates 0% stenosis relative to the normal distal artery lumen diameter. CTA head findings: There is stable relative narrowing of the proximal portion of bilateral carotid ca nals, resulting in mild extrinsic compression of the internal carotid arteries in this region. There is extensive atherosclerotic change of the cavernous internal carotid arteries with areas of mild-to- moderate stenosis. Bilateral middle cerebral arteries and anterior cerebral arteries are widely paten t. No stenosis. Distal vertebral arteries, basilar artery, and posterior cerebral arteries are patent. No stenosis. No aneurysm identified. Lung apices incidentally demonstrate mild patchy groundglass opacity/mosaic attenuation pattern. Impression: No hemodynamically significant stenosis. No change from prior exam. Mild mosaic attenuation pattern of the lung apices. Correlate for mild pulmonary edema or bronchiolit is. Reviewed, dictated and finalized at [facility]. S RIDER Impression: No hemodynamically significant stenosis. No change from prior exam. Mild mosaic attenuation pattern of the lung apices. Correlate for mild pulmonar y edema or bronchiolitis.
--- NOTE | ~2022-05-08 | XR_ITS ---
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 RESULT: Lines, tubes, and devices: None. Lungs and pleura: Senescent changes. Cardiomediastinal silhouette: Stable. Other: No acute osseous or upper abdominal finding. IMPRESSION: No acute cardiopulmonary process. Reviewed, dictated and finalized at location K. ER INSTALLER
--- NOTE | ~2022-05-08 | MR_ITS ---
MRI of the brain Clinical History: Aphasia Technique: Axial and sagittal T1-weighted images were acquired. These were followed by axial T2-weigh david, diffusion weighted, gradient, and FLAIR images. Following intravenous administration of 20 cc Mu ltiHance gadolinium, T1-weighted fat-sat imaging was performed in the axial, coronal, and sagittal pl anes. COMPARISON: 08/28/2021 Findings: No acute infarct, intracranial hemorrhage, or mass lesion identified. Focal chronic infarct noted in the left periventricular white matter. There are mild background chronic microvascular isch emic changes in the periventricular white matter bilaterally. Ventricles and subarachnoid spaces are unremarkable. Orbits are unremarkable. Paranasal sinuses and m astoid air cells are clear. Major intracranial flow voids are intact. Sagittal midline structures are intact. No abnormal postcontrast enhancement identified. IMPRESSION: No acute abnormality. Focal chronic left periventricular infarct. Mild chronic white matter changes. Reviewed, dictated and finalized at location . E MOCK UP ASSEMBLER
--- NOTE | ~2022-05-08 | CT_ITS ---
EXAMINATION: CT brain wo con DATE: 05/08/2022 17:07 INDICATION: r/o CVA . TECHNIQUE: Computed tomography (CT) of the head was performed without intravenous contrast. The mA wa s adjusted according to patient size. Iterative reconstruction technique was employed. The dose-lengt h product was 605.33 mGy-cm. COMPARISON: None. FINDINGS: No acute intracranial hemorrhage or extra-axial fluid collection. No hydrocephalus, mass, or herniation. No acute ischemic infarct. Unremarkable dural venous sinus attenuation. No acute osseous abnormality. The aerated spaces are clear. Mild atrophy and chronic white matter change. Atherosclerotic intracranial calcification. Chronic foc al left periventricular encephalomalacia. Bilateral lens replacements. IMPRESSION: No acute intracranial process. Reviewed, dictated and finalized at location K. MACHINE OPERATOR
[2022-05-08 16:46] VITALS: BP 159/76; PULSE 81; RESP 20; TEMP 36.2; O2SAT 96
--- NOTE | 2022-05-08 16:53 | ECG_ITS ---
Measurements Intervals [place] Rate: 76 P: [place]: 0 QRS: 2 QRSD: 88 T: 68 QT: 393 QTc: 444 Interpretive Statements ATRIAL FIBRILLATION WITH ABERRANT CONDUCTION OR VENTRICULAR PREMATURE COMPLEXES NONSPECIFIC T-WAVE ABNORMALITY ABNORMAL RHYTHM ECG COMPARED TO ECG 08/27/2021 17:24:28 ATRIAL FIBRILLATION NOW PRESENT ABERRANT CONDUCTION OF SUPRAVENTRICULAR BEAT(S) NOW PRESENT Electronically Signed On 05-09-2022 14:43:48 INFORMATION TECHNOLOGY AUDITOR by Justine Hinton M.D.
[2022-05-08 17:45] LABS: Glucose Point of Care 100 mg/dl (65-105)
[2022-05-08 17:51] LABS: Eosinophils Absolute Auto 0.1 K/mm3 (0-0.3); Eosinophils Percent Auto 1.7 % (0-4.4); Hematocrit 35.4 % (37.0-47.0); Hemoglobin 11.5 g/dL (12.0-15.0); Lymphocytes Percent Auto 35.2 % (18.3-44.2); Mean Corpuscular HGB Conc 32.5 g/dl (32-36); Mean Corpuscular Hemoglobin 29.3 pg (26-34); Mean Corpuscular Volume 90.1 fl (80-100); Mean Platelet Volume 9.8 fl (7.4-10.4); Monocytes Absolute Auto 0.5 K/mm3 (0.1-0.6); Monocytes Percent Auto 9.9 % (2.6-8.5); Neutrophils Absolute Auto 2.6 K/mm3 (1.3-6.7); Neutrophils Percent Auto 53.2 % (45.5-73.1); Platelet Count Result 172 k/mm3 (150-375); Red Blood Count 3.93 M/mm3 (4.2-5.4); Red Cell Distribution Width 14.3 % (11.5-14.5); White Blood Count 4.8 K/mm3 (4.5-10.0)
[2022-05-08 18:02] LABS: INR 1.1; Prothrombin Time 13.8 Seconds (11.1-14.7)
[2022-05-08 18:03] LABS: Partial Thromboplastin Time 26.9 SECONDS (22.3-36.8)
[2022-05-08 18:09] LABS: Alanine Aminotransferase 20 U/L (6-35); Albumin Level 4.3 g/dL (3.5-5.1); Alkaline Phosphatase 114 U/L (38-126); Anion Gap 6 mmol/L (8-16); Aspartate Amino Transferase 27 U/L (14-36); Bilirubin,Total 0.4 mg/dL (0.2-1.3); Blood Urea Nitrogen 17 mg/dL (7-17); Calcium 9.2 mg/dL (8.4-10.2); Carbon Dioxide 29 mmol/L (22-30); Chloride 105 mmol/L (98-107); Estimated CRCL calculation 74 ml/min; Estimated Glomerular Filt Rate > 60; Glucose 102 mg/dL (65-110); Potassium 3.9 mmol/L (3.4-5.0); Sodium 140 mmol/L (137-145)
[2022-05-08 18:20] LABS: Troponin I < 0.012 ng/mL (0.000-0.034)
[2022-05-08 22:06] VITALS: BP 162/95; PULSE 79; RESP 18; O2SAT 96
[2022-05-08] MEDS: ASPIRIN 81 MG CHEWABLE TABLET 324 MG PO (22:26)
[2022-05-08] MEDS: CLOPIDOGREL BISULFATE 300 MG TABLET PO (22:27)
--- NOTE | 2022-05-08 23:25 | ED.NEUROSD ---
HPI - Neuro Symptoms/Deficit General Chief Complaint: Suspected CVA Stated Complaint: GIBBS,HESITENT SPEECH AT 1400, RESOLVED Time Seen by Provider: 05/08/22 21:09 History of Present Illness HPI Narrative: Patient presents here with a bad headache and 30-minute episode of garbled speech and gibberish that is now resolved. Has had similar episodes back in November when she was diagnosed with a TIA. Completely asymptomatic at this time. Related Data Home Medications Medication Instructions Recorded Confirmed aspirin 81 mg tablet,delayed 81 mg PO DAILY 07/19/19 02/26/22 release (Adult Low Dose Aspirin) calcium carbonate 600 mg calcium 600 mg PO DAILY 07/19/19 02/26/22 (1,500 mg) tablet (Calcium) calcium polycarbophil 625 mg 1,250 mg PO DAILY 07/19/19 02/26/22 tablet (Fiber Therapy (ca polycarbophil)) multivitamin with minerals 1 tablet PO DAILY 07/19/19 02/26/22 (Hair,Skin and Nails tablet) potassium gluconate 595 mg (99 mg) 595 mg PO DAILY 07/19/19 02/26/22 tablet biotin 10,000 mcg capsule 10,000 mcg PO DAILY 02/14/21 02/26/22 vitamins A,C,L-auph-xlieok 14,320 1 cap PO BID 02/26/22 02/26/22 unit-226 mg-200 unit capsule (PreserVision AREDS) Allergies Allergy/AdvReac Type Severity Reaction Status Date / Time No Known Allergies Allergy Verified 02/26/22 13:27 Review of Systems Review of Systems: CONST: No fever. HEENT: No sore throat C/V: No chest pain RESP: No cough GI: No nausea or vomiting : No dysuria. M/S: No joint pain. SKIN: No rash. 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 Mild concentric left ventricular hypertrophy. Mild left ventricular enlargement. Grade 1 diastolic dysfunction. EF 60 65%. Moderate left atrial enlargement. Mild aortic valve regurgitation. Mild tricuspid regurgitation. Mild pulmonic regurgitation. 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 History of lithotripsy History of squamous cell carcinoma excision Hx of cataract surgery Hx of dilation and curettage Family History Family History Father No family history of cerebrovascular accident (CVA) Mother , At age 98 No problems noted. Other Cerebrovascular accident Diabetes mellitus Hypertension Social History Social History Social History: Code status: DNR/DNI. The patient reports that she would be comfortable with pressors and treatment but if her heart were to stop or she could not breathe on her own she would not want to be placed on a ventilator. 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 Won Manzo Smoking status: Never smoker Second hand tobacco smoke exposure: No Alcohol intake: never Substance use: never Substance use type: does not use Lack of Transportation: No Lack of Food: Never True Current Housing: I Have Housing Concerned About Future Housing: No Difficulty Paying Gas/Electric Bills: No Difficulty Paying for Meds: No Cu
[2022-05-08 23:29] LABS: Influenza A QL RT-PCR Negative (Negative); Influenza B QL RT-PCR Negative (Negative); RSV RNA, RT-PCR Negative (Negative); SARS-CoV-2 RNA PCR Negative
[2022-05-09] VITALS (7 sets, daily range): BP systolic 163–186; BP diastolic 70–83; PULSE 67–81; RESP 14–18; TEMP 36.1–36.4; O2SAT 90–96; BMI 38.7; BMI 38.6
--- NOTE | 2022-05-09 00:08 | PM.IMHP ---
H&P: HPI History of Present Illness Date/Time: 05/09/22 00:08 Chief Complaint: Speech disturbance Narrative: This is an 86-year-old female with past medical history significant for obesity, type 2 diabetes mellitus, hypertension, hypothyroidism, dyslipidemia, cerebrovascular accident, gastroesophageal reflux disease, low back pain. Patient presents to the emergency room after having an episode of speech disturbance with word-finding difficulty, patient has been in her usual state of health up until this point. Patient denies any vision changes, focal sensorimotor deficit, no loss of consciousness, no nausea, no vomiting, no lightheadedness, no vertigo. Preliminary workup was significant for CT of the head was reported as: FINDINGS: No acute intracranial hemorrhage or extra-axial fluid collection. No hydrocephalus, mass, or herniation. No acute ischemic infarct. Unremarkable dural venous sinus attenuation. No acute osseous abnormality. The? aerated spaces are clear. Mild atrophy and chronic white matter change. Atherosclerotic intracranial calcification. Chronic focal left periventricular encephalomalacia. Bilateral lens replacements. IMPRESSION:? No acute intracranial process. A CT angiogram of the brain was reported as: No significant dissection or occlusion Review of Systems Review of Systems: A speech disturbance Constitutional: Constitutional: Denies chills, Denies fatigue, Denies fever(s), Denies malaise, Denies night sweats and Denies weakness Eyes: Eyes: Denies change in vision ENT: Denies dysphagia, Denies vertigo, Denies dizziness and Denies odynophagia Cardiovascular: Cardiovascular: Denies chest pain, Denies leg edema, Denies lightheadedness, Denies palpitations and Denies dyspnea Respiratory: Respiratory: Denies chest congestion, Denies pain on inspiration, Denies dyspnea on exertion and Denies wheezing Gastrointestinal: Gastrointestinal: Denies abdominal pain, Denies dyspepsia, Denies heartburn, Denies diarrhea and Denies nausea Genitourinary: Genitourinary: Denies dysuria Musculoskeletal: Musculoskeletal: Reports back pain, Denies myalgias and Denies joint swelling Integumentary/Breasts: Skin/Breast: Denies rash Neurologic: Denies vertigo, Denies dizziness, Denies focal weakness, Denies radicular pain and Denies Sensory deficit (Neuro) Psychiatric: Psychiatric: Reports no additional psychiatric complaints and Reports as per HPI Endocrine: Endocrine: Denies cold intolerance, Denies flushing, Denies heat intolerance, Denies polyphagia, Denies polydipsia and Denies palpitations Hematologic/Lymphatic: Hematologic/Lymphatic: Reports no additional hematologic/lymphatic complaints and Reports as per HPI Allergic/Immunologic: Allergic/Immunologic: Reports no additional allergic/immunologic complaints PMFSH Past Medical History Medical History (Updated 05/09/22 @ 04:12 by Marcin Johns MD) Anxiety Arthritis Depression Diverticulitis 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 Mild concentric left ventricular hypertrophy. Mild left ventricular enlargement. Grade 1 diastolic dysfunction. EF 60 65%. Moderate left atrial enlargement. Mild aortic valve regurgitation. Mild tricuspid regurgitation. Mild pulmonic regurgitation. 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
--- NOTE | 2022-05-09 01:14 | ADMGEN ---
This patient, Jeannette Lilly, was admitted to [facility] Surg Room 307-02. Patient/family oriented to hospital policies and general routines including ID bracelet, bed and alarms, visiting hours, pain management, procedures, bathroom and other care routines, personal items, smoking policy, room service/diet, and visiting hours. Information on how to activate the Rapid Response Team has been discussed. Patient/Family are encouraged to report perceived risks to care and to ask questions if they do not understand what they are told or what they should do.
[2022-05-09] MEDS: traMADol HCL (*CRX) 50 MG TABLET PO (03:58)
--- NOTE | 2022-05-09 06:07 | PC.NURSE ---
Because of high blood pressure, cardizem and lisinopril are given early per Dr. Johns.
[2022-05-09] MEDS: KETOROLAC 30 MG/ML VIAL (*BKC) IV PUSH (06:36)
[2022-05-09] MEDS: dilTIAZem HCL CD 180 MG CAP.ER.24H PO (06:37)
[2022-05-09] MEDS: lisinopriL 10 MG TABLET PO (06:37)
[2022-05-09 08:12] LABS: Glucose Point of Care 140 mg/dl (65-105)
[2022-05-09] MEDS: THERAPEUTIC MULTIVITAMINS/MINERALS TAB (*BKC) 1 TABLET PO (09:18)
[2022-05-09] MEDS: calcium polycarbophiL 625 MG TABLET 1250 MG PO (09:18)
[2022-05-09] MEDS: PANTOPRAZOLE 40 MG TABLET PO (09:18)
[2022-05-09] MEDS: ATORVASTATIN 40 MG TABLET PO (09:18)
[2022-05-09] MEDS: CYANOCOBALAMIN 1,000 MCG TABLET 1000 MCG PO (09:18)
[2022-05-09] MEDS: CITALOPRAM HYDROBROMIDE 10 MG TABLET PO (09:18)
[2022-05-09] MEDS: CALCIUM CARBONATE (OSCAL) 500 MG TABLET PO (09:18)
[2022-05-09] MEDS: OPTI-GEN TAB 1 TABLET PO (09:18)
[2022-05-09] MEDS: GLIMEPIRIDE 2 MG TABLET 4 MG PO (09:18)
[2022-05-09] MEDS: ASPIRIN 81 MG ENTERIC TABLET PO (09:19)
[2022-05-09 12:02] LABS: Glucose Point of Care 141 mg/dl (65-105)
--- NOTE | 2022-05-09 12:56 | WPDNEURCNPN ---
Assessment and Plan Assessment and plan (1) Brain TIA: Code(s): G45.9 - Transient cerebral ischemic attack, unspecified Status: Acute Plan 1 chronic left periventricular infarct focal in configuration 2 narrowing the proximal portion of the bilateral carotid arteries with extensive atherosclerotic changes and mild to moderate stenosis. Patient receiving aspirin 81 mg daily with atorvastatin 40 mg daily and also antihypertensive medications but I will add the Plavix 75 mg daily for at least 3 months Consult date: 05/09/22 HPI: Jeannette Lilly is a 86 year old female admitted to the hospital through the emergency room for the complaints of severe headache along with garbled speech with the possibility of TIA with additional possibility of stroke, medications included aspirin 81 mg daily and a past history was consistent with the anxiety with depression, hypertension, pure hypercholesterolemia, type 2 diabetes mellitus, no history of alcohol intake or smoking, initial vital signs shirley the blood pressure 162/95, routine labs are normal and the studies for influenza AB RSV and starts COVID negative, CTA documented extensive atherosclerotic changes of the cavernous internal carotid arteries with areas of mild to moderate stenosis though bilateral middle cerebral arteries and anterior cerebral arteries are widely patent without any stenosisl , MRI of the brain has been done which documents focal chronic left periventric Review of Systems Review of Systems: All systems reviewed & are unremarkable except as noted in HPI and below PMFSH Past Medical History Medical History (Updated 05/09/22 @ 04:12 by Marcin Johns MD) Anxiety Arthritis Depression Diverticulitis 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 Mild concentric left ventricular hypertrophy. Mild left ventricular enlargement. Grade 1 diastolic dysfunction. EF 60 65%. Moderate left atrial enlargement. Mild aortic valve regurgitation. Mild tricuspid regurgitation. Mild pulmonic regurgitation. 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 History of lithotripsy History of squamous cell carcinoma excision Hx of cataract surgery Hx of dilation and curettage Family History Family History (Updated 05/09/22 @ 01:15 by Abigail Montaño RN) Father No problems noted. Mother , At age 98 No problems noted. Other Cerebrovascular accident Diabetes mellitus Hypertension No family history of cerebrovascular accident (CVA) Social History Social History Social History: Code status: DNR/DNI. The patient reports that she would be comfortable with pressors and treatment but if her heart were to stop or she could not breathe on her own she would not want to be placed on a ventilator. Healthcare power of attorney at law: Daughter Primary care physician: Dr. Won Manzo Smoking status: Never smoker Second hand tobacco smoke exposure: No Alcohol intake: never Substance use: never Substance use type: does not use Lack of Transportation: No Lack of Food: Never True Current Housing: I Have Housing Concerned About Future Housing: No Difficulty Paying Gas/Electric Bills: No Difficulty Paying for Me
--- NOTE | 2022-05-09 13:01 | PM.DS ---
DS: Admitting Diagnosis Discharge Date May 09, 2022 Admitting Diagnosis TIA DS: Discharge Diagnosis Discharge Diagnosis (1) Brain TIA: Code(s): G45.9 - Transient cerebral ischemic attack, unspecified Status: Acute Assessment and Plan: Place in observation MRI in a.m. Echocardiogram in a.m. CT of the head reviewed CTA of the head reviewed Continue to monitor Neuro checks q.4 hours (2) Hypothyroidism: Code(s): E03.9 - Hypothyroidism, unspecified Status: Acute Assessment and Plan: Continue home meds (3) Dementia: Code(s): F03.90 - Unspecified dementia, unspecified severity, without behavioral disturbance, psychotic disturbance, mood disturbance, and anxiety Status: Acute Assessment and Plan: Continue home meds (4) Hypertension: Qualifiers: Hypertension type: unspecified Qualified Code(s): I10 - Essential (primary) hypertension Code(s): I10 - Essential (primary) hypertension Status: Acute Assessment and Plan: Continue home meds\ Continue to monitor (5) Type 2 diabetes mellitus: Qualifiers: Diabetes mellitus usp insulin use: without intermediate teacher use Diabetes mellitus complication status: without complication Qualified Code(s): E11.9 - Type 2 diabetes mellitus without complications Code(s): E11.9 - Type 2 diabetes mellitus without complications Status: Acute Assessment and Plan: Diet controlled (6) GERD (gastroesophageal reflux disease): Code(s): K21.9 - Gastro-esophageal reflux disease without esophagitis Status: Acute Assessment and Plan: PPI as needed DS: Summary Hospital Course Hospital Course: Patient admitted for TIA like symptoms. By the time I had seen the patient symptoms have resolved. MRI negative. Workup unrevealing. Follow-up Neurology on discharge. Patient was given couple week prescription for Plavix. Neurology can decide if they want to continue this ongoing. No focal deficits noted prior to discharge. Time Spent with Patient Time attestation: Total time spent providing and/or coordinating discharge services: Exam Const: General: comfortable, no acute distress, well developed, alert, awake and average body habitus Nutritional Appearance: average body habitus Orientation/consciousness: patient oriented x3 HENMT: Head: normal to inspection, normocephalic and atraumatic Ears: hearing grossly normal bilaterally Face/Nose/Sinus: normal facial exam Face and sinus: normal facial exam Eyes: General: appearance normal, both eyes and all related structures Pupils: Equal, round and reactive pupils present EOM: EOMs intact bilaterally Neck: Neck: full ROM, no lymphadenopathy and no JVD Thyroid: thyroid normal Lymphatic: no lymphadenopathy noted Resp: Effort & Inspection: normal respiratory effort and able to speak in complete sentences Auscultation: clear to auscultation bilaterally Cardio: Jugular venous distension: no JVD Rate: regular rate Rhythm: regular rhythm Heart sounds: S1 normal heart sound present and S2 normal heart sound present : General: Yes deferred Skin: Rashes: no rashes Wounds: no wounds Neuro: General: patient oriented x3, CN's II-XI intact bilaterally and Unable to assess gait Cranial nerves: Yes CN's II-XII intact bilaterally and Yes Equal, round and reactive pupils present Cognition (Neuro): normal cognition Speech: normal speech Gait exam (Neuro): Unable to assess gait Motor exam (neuro): 5/5 motor strength present throughout Sensory Exam: No Sensory deficit (Neuro) Extrem: General: normal to inspection, full ROM, no joint enlargement and no pedal edema DS: Data Data Completed and Pending Labs on day of discharge: Labs from last 24 hours 05/09/22 05/09/22 05/08/22 11:59 07:34 22:47 WBC RBC Hgb Hct MCV MCH MCHC RDW Plt Count MPV Immature Gran % (Auto) Neut
== END 2022-05-09 15:20 | disposition home or self-care (01) ==
LOC: ANHED 23:27 → ANH3MEDSUR 05-09 04:52
PROVIDERS: Emergency Medicine; Admitting Provider Internal Medicine; Emergency Provider Emergency Medicine; PCP Internal Medicine; Visit Provider Chiropractor
DX: G45.9 Transient cerebral ischemic attack, unspecified (principal); E03.9 Hypothyroidism, unspecified; F03.90 Unspecified dementia, unspecified severity, without behavioral disturbance, psychotic disturbance, mood disturbance, and anxiety; I10 Essential (primary) hypertension; E11.9 Type 2 diabetes mellitus without complications; K21.9 Gastro-esophageal reflux disease without esophagitis; R51.9 Headache, unspecified; F32.A Depression, unspecified; F41.9 Anxiety disorder, unspecified; M81.0 Age-related osteoporosis without current pathological fracture; R94.31 Abnormal electrocardiogram [ECG] [EKG]; E53.8 Deficiency of other specified B group vitamins; Z20.822 Contact with and (suspected) exposure to COVID-19; R90.82 White matter disease, unspecified; Z66 Do not resuscitate; E78.00 Pure hypercholesterolemia, unspecified; Z79.82 Long term (current) use of aspirin; Z79.84 Long term (current) use of oral hypoglycemic drugs; Z79.899 Other long term (current) drug therapy; Z83.3 Family history of diabetes mellitus; Z82.49 Family history of ischemic heart disease and other diseases of the circulatory system
CPT/HCPCS: 36415; 70450; 70496; 70498; 70553; 71045; 80053; 82948; 84484; 85025; 85610; 85730; 87637; 93005; 96374; 99285; A9270; A9577; G0378; J1885; Q9967

== ENCOUNTER 2022-09-20 11:29 | Outpatient (CLI) | payer MEDICARE, SELFPAY ==
[2022-09-20 12:16] LABS: SARS-CoV-2 RNA PCR Negative (Negative)
== END 2022-09-20 11:30 | disposition home or self-care (01) ==
PROVIDERS: PCP Internal Medicine; Visit Provider Internal Medicine
DX: R50.9 Fever, unspecified (principal); Z20.822 Contact with and (suspected) exposure to COVID-19
CPT/HCPCS: 87635; U0005

== ENCOUNTER 2022-10-22 16:34 | Emergency (ER) | payer MEDICARE, SELFPAY ==
[2022-10-22] VITALS (12 sets, daily range): BP systolic 136–159; BP diastolic 70–89; PULSE 80–103; RESP 16–29; O2SAT 90–97
--- NOTE | ~2022-10-22 | XR_ITS ---
[[id number] ] INDICATION: Right posterior rib pain status post fall TECHNIQUE: Frontal projection of the upper right ribs, frontal projection of the lower right ribs, ob lique projection of all the right ribs, frontal inspiratory chest x-ray for interpretation. FINDINGS: There are no acute displaced rib fractures identified. There are multiple healed rib fract ures. There are no soft tissue abnormality seen. The lungs are clear. There are cholecystectomy cli ps. IMPRESSION: 1:No acute displaced rib fractures. Reviewed, dictated and finalized at location L.
--- NOTE | 2022-10-22 18:36 | ED.FALL ---
HPI - Fall General Chief Complaint: Fall Stated Complaint: LEG EDEMA, FALL YEST W/ RIB PAIN Time Seen by Provider: 10/22/22 16:45 History of Present Illness HPI Narrative: Patient who has had chronic lower extremity edema on Lasix, presents here after she had a fall at home because she lost her balance while bending over, she ended up going backwards, landing on her lower back/buttocks, did not hit her head. No head or neck pain, she does have some lower back pain and rib pain on the back. Related Data Home Medications Medication Instructions Recorded Confirmed calcium carbonate 600 mg calcium 600 mg PO DAILY 07/19/19 09/27/22 (1,500 mg) tablet (Calcium) calcium polycarbophil 625 mg 1,250 mg PO DAILY 07/19/19 09/27/22 tablet (Fiber Therapy (ca polycarbophil)) multivitamin with minerals 1 tablet PO DAILY 07/19/19 09/27/22 (Hair,Skin and Nails tablet) potassium gluconate 595 mg (99 mg) 595 mg PO DAILY 07/19/19 09/27/22 tablet biotin 10,000 mcg capsule 10,000 mcg PO DAILY 02/14/21 09/27/22 vitamins A,C,K-mbpg-vuydco 4,296 1 cap PO BID 02/26/22 09/27/22 mcg-226 mg-90 mg capsule (PreserVision AREDS) apixaban 5 mg tablet (Eliquis) 5 mg PO ONCE 09/03/22 09/27/22 Allergies Allergy/AdvReac Type Severity Reaction Status Date / Time No Known Allergies Allergy Verified 10/22/22 16:48 Review of Systems Review of Systems: CONST: No fever. HEENT: No sore throat C/V: No chest pain RESP: No cough GI: No abdominal pain : No dysuria. M/S: Some low back pain SKIN: No rash. 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 Mild concentric left ventricular hypertrophy. Mild left ventricular enlargement. Grade 1 diastolic dysfunction. EF 60 65%. Moderate left atrial enlargement. Mild aortic valve regurgitation. Mild tricuspid regurgitation. Mild pulmonic regurgitation. 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 History of lithotripsy History of squamous cell carcinoma excision Hx of cataract surgery Hx of dilation and curettage Family History Family History Father No problems noted. Mother , At age 98 No problems noted. Other Cerebrovascular accident Diabetes mellitus Hypertension No family history of cerebrovascular accident (CVA) Social History Social History Social History: Code status: DNR/DNI. The patient reports that she would be comfortable with pressors and treatment but if her heart were to stop or she could not breathe on her own she would not want to be placed on a ventilator. Healthcare power of psychologist industrial organizational: Daughter Primary care physician: Dr. Won Manzo Smoking status: Never smoker Second hand tobacco smoke exposure: No Alcohol intake: never Substance use: never Substance use type: does not use Lack of Transportation: No Lack of Food: Never True Current Housing: I Have Housing Concerned About Future Housing: No Difficult
[2022-10-22] MEDS: ATORVASTATIN 40 MG TABLET PO (19:00)
[2022-10-22] MEDS: APIXABAN 5 MG TABLET PO (19:00)
--- NOTE | 2022-10-22 19:17 | PC.NURSE ---
Patient report given to GAGANDEEP Aguayo. All questions answered and care of patient transferred.
--- NOTE | 2022-10-22 19:25 | PC.NURSE ---
RN into assess pt. ability to ambulate. pt. offered to be admitted for placement to rehab. pt. able to ambulate using walker w/ steady gait.
== END 2022-10-22 19:30 | disposition home or self-care (01) ==
PROVIDERS: Emergency Provider Emergency Medicine; PCP Internal Medicine
DX: S39.92XA Unspecified injury of lower back, initial encounter (principal); H91.91 Unspecified hearing loss, right ear; I10 Essential (primary) hypertension; E78.00 Pure hypercholesterolemia, unspecified; E11.9 Type 2 diabetes mellitus without complications; E55.9 Vitamin D deficiency, unspecified; H35.3190 Nonexudative age-related macular degeneration, unspecified eye, stage unspecified; K21.9 Gastro-esophageal reflux disease without esophagitis; M81.0 Age-related osteoporosis without current pathological fracture; M19.90 Unspecified osteoarthritis, unspecified site; Z85.828 Personal history of other malignant neoplasm of skin; Z87.442 Personal history of urinary calculi; Z90.49 Acquired absence of other specified parts of digestive tract; Z98.49 Cataract extraction status, unspecified eye; Z79.01 Long term (current) use of anticoagulants; Z79.84 Long term (current) use of oral hypoglycemic drugs; W18.39XA Other fall on same level, initial encounter
CPT/HCPCS: 71101; 99283; A9270

== ENCOUNTER → 2022-11-15 15:04 | Outpatient (CLI) | payer MEDICARE, SELFPAY ==
--- NOTE | ~2022-11-15 | MR_ITS ---
EXAMINATION: MR lumbar spine wo con DATE: 11/15/2022 15:50 INDICATION: Low back pain. TECHNIQUE: Magnetic resonance imaging (MRI) of the lumbar spine was performed without intravenous con trast. Sequences included sagittal T2-weighted FSE, sagittal T2-weighted FS FSE, sagittal T1-weighted FSE, and axial T2-weighted FSE. COMPARISON: Lumbar spine MRI 01/31/2009, CT abdomen and pelvis 09/21/2019 FINDINGS: There is 4 mm anterolisthesis of L4 on L5. There is a compression fracture of L1 with less than 1/5 loss of height and edema-like marrow signal intensity. There is a burst fracture of L3 with 1/5 loss of height, low signal fracture line, and edema-like marrow signal intensity. There is a burs t fracture of L4 with up to 4/5 loss of height centrally and edema-like marrow signal intensity. Ther e is mildly decreased disc height at L1-L2 and L2-L3 and severely decreased disc height at L3-L4, L4- L5, and L5-S1. The distal spinal cord signal intensity is normal. The conus medullaris is at L1. Ther e are peripelvic cysts in the kidneys. The following disc levels are specifically discussed: L1-L2: The disc is bulging. There is mild bilateral facet joint osteoarthritis. There is mild bilater al neural foraminal stenosis. There is mild central canal stenosis. L2-L3: The disc is bulging. There is moderate bilateral facet joint osteoarthritis. There is mild brian ateral neural foraminal stenosis. There is mild central canal stenosis. L3-L4: The disc is bulging and has an annular fissure. There is severe bilateral facet joint osteoart hritis. There is mild right and moderate left neural foraminal stenosis. There is mild central canal stenosis. There is moderate stenosis of the lateral recesses. L4-L5: The disc is bulging and has an annular fissure. There is severe bilateral facet joint osteoart hritis. There is mild bilateral neural foraminal stenosis. There is moderate central canal stenosis. L5-S1: The disc is bulging and has an annular fissure. There is severe bilateral facet joint osteoart hritis. There is mild bilateral neural foraminal stenosis. There is no central canal stenosis. IMPRESSION: 1. Acute versus subacute L1 compression fracture and L3 burst fracture. 2. Subacute versus chronic L4 burst fracture. 3. Severe lumbar spondylosis. Reviewed, dictated and finalized at location A.
== END ==
PROVIDERS: PCP Internal Medicine; Visit Provider Nurse Practitioner Family
DX: M47.896 Other spondylosis, lumbar region (principal); S32.010A Wedge compression fracture of first lumbar vertebra, initial encounter for closed fracture; S32.031A Stable burst fracture of third lumbar vertebra, initial encounter for closed fracture; S32.041A Stable burst fracture of fourth lumbar vertebra, initial encounter for closed fracture; X58.XXXA Exposure to other specified factors, initial encounter
CPT/HCPCS: 72148

== ENCOUNTER → 2023-01-02 13:18 | Outpatient (CLI) | payer MEDICARE, SELFPAY ==
--- NOTE | ~2023-01-02 | XR_ITS ---
EXAMINATION: XR lumbar spine 2-3V DATE: 01/02/2023 13:38 INDICATION: Low back pain, recent vertebroplasty TECHNIQUE: Anteroposterior and lateral views of the lumbar spine, and cone-down lateral view of the l umbosacral junction were obtained. COMPARISON: MRI, 11/15/2022 FINDINGS: There has been interval vertebroplasty change at L1 and L3. A burst fracture of L4 is not s ignificantly changed. There are 4 mm of anterolisthesis of L4 on L5. There is severe loss of interver tebral disc space height at L3-4, L4-5, and L5-S1 and mild loss of intervertebral disc space height a t L1-2 and L2-3. No acute fracture is identified. Calcified atherosclerosis is noted. There is multil evel severe facet joint osteoarthritis. IMPRESSION: 1. Interval vertebroplasty change at L1 and L2. 2. Stable burst fracture of L4. 3. Severe lumbar spondylosis without acute findings identified. Reviewed, dictated and finalized at location A.
== END ==
PROVIDERS: PCP Nurse Practitioner Family; Visit Provider Nurse Practitioner Family
DX: M47.896 Other spondylosis, lumbar region (principal); S32.041D Stable burst fracture of fourth lumbar vertebra, subsequent encounter for fracture with routine healing; X58.XXXD Exposure to other specified factors, subsequent encounter
CPT/HCPCS: 72100

== ENCOUNTER 2023-03-28 12:47 | Outpatient (CLI) | payer MEDICARE, SELFPAY | END 2023-03-28 12:48 | disposition home or self-care (01) | LOC: ANHAUDASC 12:48 | PROVIDERS: PCP Nurse Practitioner Family; Visit Provider Otolaryngology | DX: H90.3 Sensorineural hearing loss, bilateral (principal) | CPT/HCPCS: 92557; 92567 ==

== ENCOUNTER → 2023-03-31 13:02 | Outpatient (CLI) | payer MEDICARE, SELFPAY ==
--- NOTE | ~2023-03-31 | MM_ITS ---
EXAMINATION: MM screening luz BI w [facility] HISTORY: Screening mammogram TECHNIQUE: Craniocaudal and mediolateral oblique 3-D tomosynthesis images were obtained and synthetic 2-D images were generated. CAD analysis was submitted and interpreted. COMPARISON: 11/23/2021, 05/29/2018 bilateral screening mammogram examinations BREAST PARENCHYMAL COMPOSITION: There are scattered areas of fibroglandular density. FINDINGS: Scattered bilateral benign calcifications. There is no evidence of suspicious mass, calcifi cation, or architectural distortion to suggest malignancy in either breast. There has been no suspici ous interval change. IMPRESSION: 1. No mammographic evidence of malignancy. 2. Recommend routine screening mammography in one year. BI-RADS Category 2: Benign finding(s).. Reviewed, dictated and finalized at location A. 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
== END ==
PROVIDERS: PCP Internal Medicine; Visit Provider Internal Medicine
DX: Z12.31 Encounter for screening mammogram for malignant neoplasm of breast (principal)
CPT/HCPCS: 77063; 77067

== ENCOUNTER 2023-08-13 14:24 | Outpatient (CLI) | payer MEDICARE, SELFPAY ==
[2023-08-13 14:44] LABS: Basophils Percent Auto 0.3 % (0.2-1.2); Eosinophils Percent Auto 0.7 % (0-4.4); Hematocrit 39.3 % (37.0-47.0); Hemoglobin 12.5 g/dL (12.0-15.0); Immature Granulocyte Absolute 0.01 K/mm3 (0.00-0.031); Immature Granulocyte Percent A 0.2 % (0-0.5); Lymphocytes Absolute Auto 1.79 K/mm3 (0.9-3.2); Lymphocytes Percent Auto 31.1 % (18.3-44.2); Mean Corpuscular HGB Conc 31.8 g/dl (32-36); Mean Corpuscular Hemoglobin 28.3 pg (26-34); Mean Corpuscular Volume 88.9 fl (80-100); Mean Platelet Volume 9.7 fl (7.4-10.4); Monocytes Absolute Auto 0.6 K/mm3 (0.1-0.6); Monocytes Percent Auto 11.1 % (2.6-8.5); Neutrophils Absolute Auto 3.3 K/mm3 (1.3-6.7); Neutrophils Percent Auto 56.6 % (45.5-73.1); Platelet Count Result 173 k/mm3 (150-375); Red Blood Count 4.42 M/mm3 (4.2-5.4); Red Cell Distribution Width 15.2 % (11.5-14.5); White Blood Count 5.8 K/mm3 (4.5-10.0)
[2023-08-13 14:54] LABS: Alanine Aminotransferase 15 U/L (6-35); Albumin Level 4.3 g/dL (3.5-5.1); Alkaline Phosphatase 75 U/L (38-126); Anion Gap 5 mmol/L (4-12); Aspartate Amino Transferase 29 U/L (14-36); Bilirubin,Total 0.8 mg/dL (0.2-1.3); Blood Urea Nitrogen 18 mg/dL (7-17); Calcium 9.9 mg/dL (8.4-10.2); Carbon Dioxide 29 mmol/L (22-30); Chloride 103 mmol/L (98-107); Estimated Glomerular Filt Rate > 60; Glucose 140 mg/dL (65-110); Potassium 4.4 mmol/L (3.4-5.0); Sodium 137 mmol/L (137-145)
== END 2023-08-13 14:25 | disposition home or self-care (01) ==
LOC: ANHLAB 14:26
PROVIDERS: PCP Physician Assistant; Visit Provider Internal Medicine Cardiovascular Disease
DX: I48.0 Paroxysmal atrial fibrillation (principal)
CPT/HCPCS: 36415; 80053; 85025

== ENCOUNTER 2023-08-19 14:41 | Outpatient (CLI) | payer MEDICARE, SELFPAY ==
--- NOTE | ~2023-08-19 | XR_ITS ---
Lumbosacral Spine: AP and lateral views Clinical History: Pain COMPARISON: 01/02/2023 Findings: The normal lordotic curve is maintained. Stable vertebroplasty cement at L1 and L3. Stable additional compression fracture deformity of L4. There is 7 mm anterolisthesis of L4 over L5. There i s advanced degenerative disc narrowing throughout the lumbar spine, worst at L3-L4 and L4-L5. There i s moderate to advanced facet arthropathy throughout the lumbar spine. The sacroiliac joints are shirley lly outlined. Impression: Advanced degenerative spondylosis. Stable compression fracture of L4, with 7 mm anterolisthesis of L4 over L5. Stable vertebroplasty cement at L1 and L3. Reviewed, dictated and finalized at location . Impression: Advanced degenerative spondylosis. Stable compression fracture of L4, with 7 mm anterolisthesis of L4 over L5. Stable vertebroplasty cement at L1 and L3.
== END 2023-08-19 14:42 ==
LOC: MICIMG 14:44
PROVIDERS: PCP Nurse Practitioner Family; Visit Provider Nurse Practitioner Family
DX: M47.896 Other spondylosis, lumbar region (principal); S32.040D Wedge compression fracture of fourth lumbar vertebra, subsequent encounter for fracture with routine healing; X58.XXXD Exposure to other specified factors, subsequent encounter
CPT/HCPCS: 72100

== ENCOUNTER 2023-12-03 13:51 | Outpatient (CLI) | payer MEDICARE, SELFPAY ==
[2023-12-03 14:17] LABS: Basophils Percent Auto 0.4 % (0.2-1.2); Eosinophils Percent Auto 0.8 % (0-4.4); Hematocrit 39.6 % (37.0-47.0); Hemoglobin 12.6 g/dL (12.0-15.0); Immature Granulocyte Absolute 0.01 K/mm3 (0.00-0.031); Immature Granulocyte Percent A 0.2 % (0-0.5); Lymphocytes Absolute Auto 1.86 K/mm3 (0.9-3.2); Mean Corpuscular HGB Conc 31.8 g/dl (32-36); Mean Corpuscular Hemoglobin 29.5 pg (26-34); Mean Corpuscular Volume 92.7 fl (80-100); Monocytes Absolute Auto 0.5 K/mm3 (0.1-0.6); Monocytes Percent Auto 9.6 % (2.6-8.5); Neutrophils Absolute Auto 2.9 K/mm3 (1.3-6.7); Platelet Count Result 162 k/mm3 (150-375); Red Blood Count 4.27 M/mm3 (4.2-5.4); Red Cell Distribution Width 14.2 % (11.5-14.5); White Blood Count 5.3 K/mm3 (4.5-10.0)
[2023-12-03 14:28] LABS: Iron 92 ug/dL (37-170)
[2023-12-03 14:30] LABS: Alanine Aminotransferase 16 U/L (6-35); Albumin Level 4.5 g/dL (3.5-5.1); Alkaline Phosphatase 72 U/L (38-126); Anion Gap 8 mmol/L (4-12); Aspartate Amino Transferase 23 U/L (14-36); Bilirubin,Total 0.8 mg/dL (0.2-1.3); Blood Urea Nitrogen 26 mg/dL (7-17); Calcium 9.7 mg/dL (8.4-10.2); Carbon Dioxide 31 mmol/L (22-30); Chloride 99 mmol/L (98-107); Estimated Glomerular Filt Rate > 60; Glucose 124 mg/dL (65-110); Potassium 4.4 mmol/L (3.4-5.0); Sodium 138 mmol/L (137-145)
[2023-12-03 14:35] LABS: Hemoglobin A1C 7.4 % (<5.7)
[2023-12-03 14:37] LABS: Percent Iron Saturation 27 % (20-50)
[2023-12-03 14:41] LABS: Creatinine Urine 97.9 mg/dL
[2023-12-03 14:45] LABS: MALB Creatinine Ratio 7.7 mg/g (0-30); Microalbumin Urine Random 7.5 mg/L (0-16.7)
== END 2023-12-03 13:52 | disposition home or self-care (01) ==
LOC: ANHLAB 13:56
PROVIDERS: PCP Internal Medicine; Visit Provider Internal Medicine
DX: D64.9 Anemia, unspecified (principal); E11.9 Type 2 diabetes mellitus without complications
CPT/HCPCS: 36415; 80053; 82043; 83036; 83540; 83550; 85025

== ENCOUNTER 2024-06-03 14:22 | Outpatient (CLI) | payer MEDICARE, SELFPAY ==
--- NOTE | ~2024-06-03 | MM_ITS ---
EXAMINATION: MM screening luz BI w [facility] HISTORY: Screening TECHNIQUE: Craniocaudal and mediolateral oblique 3-D tomosynthesis images were obtained and synthetic 2-D images were generated. CAD analysis was submitted and interpreted. COMPARISON: Comparison to multiple prior studies sequentially, with oldest reviewed study dated 08/29. BREAST PARENCHYMAL COMPOSITION: Not Dense: The breasts are almost entirely fatty. FINDINGS: There is no evidence of suspicious mass, calcification, or architectural distortion to sugg est malignancy in either breast. There has been no suspicious interval change. IMPRESSION: 1. No mammographic evidence of malignancy. 2. Recommend routine screening mammography in one year. BI-RADS Category 1: Negative Reviewed, dictated and finalized at location A. 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
== END 2024-06-03 14:23 | disposition home or self-care (01) ==
LOC: MICIMG 14:23
PROVIDERS: PCP Internal Medicine; Visit Provider Internal Medicine
DX: Z12.31 Encounter for screening mammogram for malignant neoplasm of breast (principal)
CPT/HCPCS: 77063; 77067

== ENCOUNTER 2024-10-07 12:43 | Outpatient (CLI) | payer MEDICARE, SELFPAY ==
--- NOTE | ~2024-10-07 | MR_ITS ---
MRI of the lumbar spine Clinical History: Back pain Technique: Axial T2-weighted images, and sagittal T1-weighted, T2-weighted, and and T2 fat-sat images were acquired. COMPARISON: 11/15/2022 Findings: There is severe chronic compression fracture deformity of L4, unchanged from prior exam. Th ere has been interval vertebroplasty at L1 and L3. No acute fracture or subluxation evident. No suspi cious bone marrow signal abnormality seen. At L1-L2, there is moderate degenerative distended. There is minimal disc bulge and mild facet arthro ana rosa. No central canal stenosis or neural foraminal narrowing. L2-L3, there is advanced degenerative disc narrowing. There is diffuse disc bulge with moderate to se josue facet arthropathy. There is no aurora central canal stenosis. There is mild to moderate left neur al foraminal narrowing, and mild right neural foraminal narrowing. At L3-L4, there is moderate degenerative disc disease. There is diffuse disc bulge and severe facet a rthropathy, resulting in severe spinal canal stenosis/thecal sac compression. There is severe bilater al neural foraminal comprise, left worse than right. At L4-L5, there is severe degenerative disc narrowing. Diffuse disc bulge and severe facet arthropath y result in severe spinal canal stenosis/thecal sac compression. There is moderate bilateral neural f oraminal narrowing. At L5-S1, there is diffuse disc bulge with moderate facet arthropathy. No central canal stenosis. The re is severe bilateral neural foraminal contrast. Paravertebral soft tissues are unremarkable. Impression: Chronic compression fractures of L1, L3, L4, with vertebroplasty cement at L1 and L3. Advanced degenerative spondylosis, as detailed above. There is multilevel spinal canal stenosis and n eural foraminal narrowing. Findings are probably worst at L3-L4 and L4-L5. Reviewed, dictated and finalized at location . Impression: Chronic compression fractures of L1, L3, L4, with vertebroplasty cement at L1 a nd L3. Advanced degenerative spondylosis, as detailed above. There is multilevel spina l canal stenosis and neural foraminal narrowing. Findings are probably worst at L3-L4 and L4-L5.
== END 2024-10-07 12:44 | disposition home or self-care (01) ==
LOC: MICIMG 12:45
PROVIDERS: PCP Internal Medicine; Visit Provider Nurse Practitioner Family
DX: M48.062 Spinal stenosis, lumbar region with neurogenic claudication (principal); M47.26 Other spondylosis with radiculopathy, lumbar region; S32.010D Wedge compression fracture of first lumbar vertebra, subsequent encounter for fracture with routine healing; S32.030D Wedge compression fracture of third lumbar vertebra, subsequent encounter for fracture with routine healing; S32.040D Wedge compression fracture of fourth lumbar vertebra, subsequent encounter for fracture with routine healing; X58.XXXD Exposure to other specified factors, subsequent encounter
CPT/HCPCS: 72148